=== PATIENT | female | born 2000 | race Caucasian/White ===

== ENCOUNTER 2018-03-29 11:20 | Emergency (ER) | payer SELFPAY ==
[~2018-03-29] VITALS: Ht 152.4 cm; Wt 68.0 kg
[2018-03-29 12:07] LABS: BILIRUBIN,URINE NEGATIVE (NEGATIVE); CLARITY,URINE SLIGHTLY CLOUDY; COLOR,URINE YELLOW; GLUCOSE, URINE (UA) NEGATIVE (NEGATIVE); KETONES,URINE NEGATIVE (NEGATIVE); LEUKOCYTE ESTERASE ,URINE 3+ (NEGATIVE); NITRITE,URINE NEGATIVE (NEGATIVE); PH,URINE 5 (5-9); PROTEIN,URINE NEGATIVE (NEGATIVE); UROBILINOGEN,URINE NORMAL (NORMAL)
[2018-03-29 12:14] LABS: BACTERIA,URINE FEW /HPF
[2018-03-29 12:19] LABS: BASOPHILS % (AUTO) 0 % (0-10); EOSINOPHILS # (AUTO) 0.3 10^3/uL (0.0-0.3); EOSINOPHILS % (AUTO) 4 % (0-10); HEMATOCRIT 40 % (35-52); HEMOGLOBIN 13.8 G/DL (11.5-16.0); LYMPHOCYTES # (AUTO) 2.8 X 10^3 (1.0-4.0); LYMPHOCYTES % (AUTO) 39 % (12-44); MEAN CORPUSCULAR HEMOGLOBIN 29 PG (25-34); MEAN CORPUSCULAR HGB CONC 35 G/DL (32-36); MEAN CORPUSCULAR VOLUME 82 FL (80-99); MONOCYTES # (AUTO) 0.4 X 10^3 (0.0-1.0); MONOCYTES % (AUTO) 5 % (0-12); NEUTROPHILS # (AUTO) 3.7 X 10^3 (1.8-7.8); NEUTROPHILS % (AUTO) 51 % (42-75); PLATELET COUNT 256 10^3/uL (130-400); RED BLOOD COUNT 4.82 10^6/uL (4.35-5.85); RED CELL DISTRIBUTION WIDTH 13.8 % (10.0-14.5); WHITE BLOOD COUNT 7.2 10^3/uL (4.3-11.0)
[2018-03-29 12:38] LABS: ALANINE AMINOTRANSFERASE 15 U/L (0-55); ALBUMIN 4.6 GM/DL (3.2-4.5); ALKALINE PHOSPHATASE 125 U/L (40-136); BILIRUBIN,TOTAL 0.4 MG/DL (0.1-1.0); BUN/CREATININE RATIO 12; CARBON DIOXIDE 22 MMOL/L (21-32); CHLORIDE 106 MMOL/L (98-107); CREATININE SERUM 0.74 MG/DL (0.60-1.30); GFR ESTIMATED > 60; GLUCOSE 91 MG/DL (70-105); POTASSIUM 3.8 MMOL/L (3.6-5.0); SODIUM 139 MMOL/L (135-145); TOTAL PROTEIN 8.3 GM/DL (6.4-8.2)
--- NOTE | 2018-03-29 13:12 | ED Abdominal Pain ---
General Chief Complaint: Abdominal/GI Problems Stated Complaint: THROWING UP Nursing Triage Note: VOMITING SINCE 0300, EPIGASTRIC PAIN Source of Information: Patient Exam Limitations: No Limitations History of Present Illness Date Seen by Provider: Mar 29, 2018 Time Seen by Provider: 13:08 Initial Comments The patient is a 17-year-old white female who presents with a chief complaint of abdominal pain. She reports that this began at about 0300 this morning. She feels nauseated but has not vomited. The pain is in the area above the umbilicus at and extending to the xiphoid. She has not attempted to eat today. She has passed gas but has not had a bowel movement today. She normally has at least one bowel movement per day. There is no radiation to the scapula or shoulder. She has had a previous appendectomy as a small child performed with laparoscopy. Timing/Duration: 12 Hours Severity/Quality: Mild, Moderate Location: Epigastric, Periumbilical Radiation: No Radiation Activities at Onset: None Allergies and Home Medications Allergies Coded Allergies: No Allergy Information Available (Unverified , 03/29/18) Patient Home Medication List Home Medication List Reviewed: Yes Review of Systems Review of Systems Constitutional: see HPI EENTM: No Symptoms Reported Respiratory: No Symptoms Reported Cardiovascular: No Symptoms Reported Gastrointestinal: See HPI Genitourinary: No Symptoms Reported Musculoskeletal: no symptoms reported Skin: no symptoms reported Psychiatric/Neurological: No Symptoms Reported Endocrine: No Symptoms Reported Hematologic/Lymphatic: No Symptoms Reported Past Nnwfobw-Pcgklh-Fqkqav Hx Patient Social History Alcohol Use: Denies Use Recreational Drug Use: No Smoking Status: Current Everyday Smoker Type Used: Cigarettes Recent Foreign Travel: No Contact w/Someone Who Travel: No Recent Infectious Disease Expo: No Recent Hopitalizations: No Physical Abuse: No Sexual Abuse: No Past Medical History Surgeries: Yes Appendectomy Respiratory: No Cardiac: No Neurological: No Genitourinary: No Gastrointestinal: No Musculoskeletal: No Endocrine: No HEENT: No Cancer: No Psychosocial: No Integumentary: No Blood Disorders: No Physical Exam Vital Signs Vital Signs - First Documented Capillary Refill : Height/Weight/BMI Height: 5'0" Weight: 150lbs. oz. 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, no motor/sensory deficits, alert, normal mood/affect, oriented x 3 Progress/Results/Core Measures Results/Orders Lab Results Laboratory Tests Test 03/29/18 11:57 03/29/18 12:01 Range/Units Urine Color YELLOW Urine Clarity SLIGHTLY CLOUDY Urine pH 5 5-9 Urine Specific [place] 1.015 L 1.016-1.022 Urine Protein NEGATIVE NEGATIVE Urine Glucose (UA) NEGATIVE NEGATIVE Urine Ketones NEGATIVE NEGATIVE Urine Nitrite NEGATIVE NEGATIVE Urine Bilirubin NEGATIVE NEGATIVE Urine Urobilinogen NORMAL NORMAL MG/DL Urine Leukocyte Esterase 3+ H NEGATIVE Urine RBC (Auto) NEGATIVE NEGATIVE Urine RBC NONE /HPF Urine WBC 10-25 H /HPF Urine Squamous Epithelial Cells 5-10 /HPF Urine Crystals NONE /LPF Urine Bacteria FEW H /HPF Urine Casts NONE /LPF Urine Mucus NEGATIVE /LPF Urine Culture Indicated YES Urine Test NEGATIVE NEGATIVE White Blood Count 7.2 4.3-11.0 10^3/uL Red Blood Count 4.82 4.35-5.85 10^6/uL Hemoglobin 13.8 11.5-16.0 G/DL Hematocrit 40 35-52 % Mean Corpuscular Volume 82 80-99 FL Mean Corpuscular Hemoglobin 29 25-34 PG Mean Corpuscular Hemoglobin Concent 35 32-36 G/DL Red Cell Distribution Width 13.8 10.0-14.5 % Platelet Count 256 130-400 10^3/uL Mean Platelet Volume 10.0 7.4-10.4 FL Neutrophils (%) (Auto) 51 42-75 % Lymphocytes (%) (Auto) 39 12-44 % Monocytes (%) (Auto) 5 0-12 % Eosinophils (%) (Auto) 4 0-10 % Basophils (%) (Auto) 0 0-10 % Neutrophils # (Auto) 3.7 1.8-7.8 X 10^3 Lymphocytes # (Auto) 2.8 1.0-4.0 X 10^3 Monocytes # (Auto) 0.4 0.0-1.0 X 10^3 Eosinophils # (Auto) 0.3 0.0-0.3 10^3/uL Basophils # (Auto) 0.0 0.0-0.1 10^3/uL Sodium Level 139 135-145 MMOL/L Potassium Level 3.8 3.6-5.0 MMOL/L Chloride Level 106 98-107 MMOL/L Carbon Dioxide Level 22 21-32 MMOL/L Anion Gap 11 5-14 MMOL/L Blood Urea Nitrogen 9 7-18 MG/DL Creatinine 0.74 0.60-1.30 MG/DL Estimat Glomerular Filtration Rate > 60 BUN/Creatinine Ratio 12 Glucose Level 91 70-105 MG/DL Calcium Level 10.0 8.5-10.1 MG/DL Corrected Calcium 8.5-10.1 MG/DL Total Bilirubin 0.4 0.1-1.0 MG/DL Aspartate Amino Transf (AST/SGOT) 18 5-34 U/L Alanine Aminotransferase (ALT/SGPT) 15 0-55 U/L Alkaline Phosphatase 125 40-136 U/L Total Protein 8.3 H 6.4-8.2 GM/DL Albumin 4.6 H 3.2-4.5 GM/DL My Orders Orders - JODI LEMA MD Cbc With Automated Diff (03/29/18 11:57) Comprehensive Metabolic Panel (03/29/18 11:57) Ua Culture If Indicated (03/29/18 11:57) Urine Culture (03/29/18 11:57) Ct Abdomen/Pelvis W (03/29/18 13:07) Hcg,Qualitative Urine (03/29/18 13:13) Iohexol Injection (Omnipaque 350 Mg/Ml 1 (03/29/18 13:30) Vital Signs/I&O 03/29/18 03/29/18 11:40 11:40 Temp 98.6 98.6 Pulse 69 69 Resp 14 14 B/P (MAP) 132/83 132/83 Pulse Ox 98 98 Departure Communication (Admissions) CT scan did not define any process in the epigastric area. There was an incidental finding of an ovarian cyst. Impression Primary Impression: urinary tract infection Disposition: 01 HOME, SELF-CARE Condition: Stable/Unchanged Departure-Patient Inst. Decision time for Depature: 14:03 Referrals: NO,LOCAL PHYSICIAN (PCP) Primary Care Physician Patient Instructions: Acute Abdomen (Belly Pain), Child (DC) Add. Discharge Instructions: All discharge instructions reviewed with patient and/or family. Voiced understanding. Take the medication as prescribed for urinary tract infection. If continuing difficulty see your provider JODI LEMA MD Mar 29, 2018 13:12
[2018-03-29] MEDS ORDERED: IOHEXOL 350 MG/ML 100 ML (OMNIPAQUE 350) VIAL IV ONE (13:30)
[2018-03-29] MEDS ORDERED: CEFD300C3 PO (14:10)
--- NOTE | 2018-03-29 14:12 | Diagnostic Imaging Report ---
PROCEDURE: CT abdomen and pelvis with contrast. TECHNIQUE: Multiple contiguous axial images were obtained through the abdomen and pelvis after administration of intravenous contrast. INDICATION: Abdominal pain. COMPARISON: None. FINDINGS: Lung bases are clear. The liver, gallbladder, pancreas, spleen, adrenals, kidneys, collecting systems and partially opacified bladder are negative. Appendectomy. The reproductive structures are unremarkable. No free intraperitoneal air or fluid. No lymphadenopathy. No evidence of bowel obstruction or inflammation. Osseous structures are negative. IMPRESSION: No acute CT findings in the abdomen or pelvis. Dictated by: Dictated on workstation # [id number]
== END 2018-03-29 14:34 | disposition home or self-care (01) ==
LOC: ER 11:21
DX: N39.0 Urinary tract infection, site not specified (principal); R10.33 Periumbilical pain; F17.210 Nicotine dependence, cigarettes, uncomplicated; Z90.89 Acquired absence of other organs; Z90.49 Acquired absence of other specified parts of digestive tract
CPT/HCPCS: 36415; 74177; 80053; 81000; 84703; 85025; 87088

== ENCOUNTER 2018-12-25 12:06 | Emergency (ER) | payer SELFPAY ==
[~2018-12-25] VITALS: Ht 152.4 cm; Wt 81.6 kg
[~2018-12-25 12:06] MED LIST: CEFD300C3 PO
--- NOTE | 2018-12-25 12:39 | NUR ---
Pt to room at this time. Attempted to start IV and draw labs. Pt reports, "I don't do that shit. I don't do needles. I just need a work note." This nurse questioned pt about vomiting at this time. Pt reports feeling better and only needs a work note.
--- NOTE | 2018-12-25 12:48 | ED GI ---
General Chief Complaint: Abdominal/GI Problems Stated Complaint: N/V Nursing Triage Note: Pt amb to triage w/o difficulty. a&ox4. c/o nausea, vomiting, and abd discomfort that began @ approx 1800 12/24/18. Reports to have had x2 episodes of emesis throughout this morning. Describes abd discomfort as generalized ache. Pt states, "My boss won't let me come to work around food until I havent thrown up for <24hrs." Sepsis Screen: No Definite Risk Source of Information: Patient Exam Limitations: No Limitations History of Present Illness Date Seen by Provider: Dec 25, 2018 Time Seen by Provider: 12:45 Initial Comments To ER with reports of needing a work note. She had nausea vomiting and upper abdominal discomfort last night but that has resolved. She states she works for [employer] and has been told that she can go to work for 24 hours after nausea and vomiting. States she doesn't want any blood work done or evaluation, only a work note. Timing/Duration: 1-2 Days Severity/Quality: Moderate Radiation: No Radiation Activities at Onset: None Associated Symptoms: Nausea/Vomiting Allergies and Home Medications Allergies Coded Allergies: No Known Drug Allergies (Unverified , 03/29/18) Home Medications Cefdinir 300 Mg Capsule, 300 MG PO twice a day Prescribed by: JODI LEMA on 03/29/18 1410 Patient Home Medication List Home Medication List Reviewed: Yes Review of Systems Review of Systems Constitutional: see HPI EENTM: No Symptoms Reported Respiratory: No Symptoms Reported Cardiovascular: No Symptoms Reported Gastrointestinal: See HPI, Abdominal Pain, Diarrhea, Nausea Genitourinary: No Symptoms Reported Musculoskeletal: no symptoms reported Skin: no symptoms reported Psychiatric/Neurological: No Symptoms Reported Endocrine: No Symptoms Reported Hematologic/Lymphatic: No Symptoms Reported Past Rfrrgzi-Gpzwgh-Gwoeew Hx Patient Social History Alcohol Use: Denies Use Recreational Drug Use: No Smoking Status: Current Everyday Smoker Type Used: Cigarettes 2nd Hand Smoke Exposure: Yes Recent Foreign Travel: No Contact w/Someone Who Travel: No Recent Infectious Disease Expo: No Recent Hopitalizations: No Past Medical History Surgeries: Yes Appendectomy Respiratory: No Cardiac: No Neurological: No Genitourinary: No Gastrointestinal: No Musculoskeletal: No Endocrine: No HEENT: No Cancer: No Psychosocial: No Integumentary: No Blood Disorders: No Physical Exam Vital Signs Vital Signs - First Documented 12/25/18 12:22 Temp 98.5 Pulse 68 Resp 16 B/P (MAP) 109/60 (76) Pulse Ox 99 O2 Delivery Room Air Capillary Refill : Less Than 3 Seconds Height/Weight/BMI Height: 5'0" Weight: 180lbs. oz. 81.067530xg; 29.29 BMI Method:Stated General Appearance: WD/WN, no apparent distress HEENT: PERRL/EOMI, normal ENT inspection Respiratory: no respiratory distress, no accessory muscle use Gastrointestinal: normal bowel sounds, non tender, soft Extremities: normal range of motion, non-tender Neurologic/Psychiatric: alert, normal mood/affect, oriented x 3 Skin: normal color, warm/dry Progress/Results/Core Measures Results/Orders Vital Signs/I&O 12/25/18 12:22 Temp 98.5 Pulse 68 Resp 16 B/P (MAP) 109/60 (76) Pulse Ox 99 O2 Delivery Room Air Blood Pressure Mean: 76 Departure Communication (Admissions) RN advised patient initially before I was in the room that we should start an IV and check labs, patient replied "no, I don't do that shit I just need a work note" Impression Primary Impression: request for work note Additional Impression: Reported nausea and vomiting Disposition: HOME, SELF-CARE Condition: Stable Departure-Patient Inst. Decision time for Depature: 12:47 Referrals: NO,LOCAL PHYSICIAN (PCP/Family) Primary Care Physician Patient Instructions: No Instuctions Given Add. Discharge Instructions: For future reference the emergency room should not be used to obtain work notes, emergency room should be used for emergencies. Follow-up with your primary care provider. For future nonemergency situations such as this one go to an urgent care. All discharge instructions reviewed with patient and/or family. Voiced understanding. JEANIE CASTELLANO APRN Dec 25, 2018 12:48
[2018-12-25 12:51] VITALS: BP 109/60
== END 2018-12-25 12:51 | disposition home or self-care (01) ==
LOC: EDUNIT# 12:06 → ER 12:07
DX: R11.2 Nausea with vomiting, unspecified (principal); F17.210 Nicotine dependence, cigarettes, uncomplicated; Z90.49 Acquired absence of other specified parts of digestive tract
CPT/HCPCS: 99282

== ENCOUNTER 2019-02-08 19:10 | Emergency (ER) | payer SELFPAY ==
[~2019-02-08] VITALS: Ht 152.4 cm; Wt 81.6 kg
[2019-02-08] MEDS ORDERED: D-ME118S33 PO (19:56)
--- NOTE | 2019-02-08 19:56 | ED EENT ---
History of Present Illness General Chief Complaint: Oral/Throat Problems Stated Complaint: COUGH,FEVER Nursing Triage Note: HAS HAD A COUGH, SORE THROAT, AND NASAL DRAINAGE FOR THREE DAYS AND IT HAS ONLY GOTTEN WORSE. Source: patient Exam Limitations: no limitations History of Present Illness Date Seen by Provider: Feb 08, 2019 Time Seen by Provider: 19:54 Initial Comments To ER with sore throat runny nose and nasal drainage productive cough and fever up to 103 for 3 days. She is take ibuprofen, states she doesn't have any money for NyQuil or DayQuil Timing/Duration: abrupt Severity: moderate Associated Symptoms: denies symptoms Allergies and Home Medications Allergies Coded Allergies: No Known Drug Allergies (Unverified , 03/29/18) Home Medications Cefdinir 300 Mg Capsule, 300 MG PO twice a day Prescribed by: JODI LEMA on 03/29/18 1410 D-Methorphan Hb/P-Epd HCl/Bpm 118 Ml Syrup, 5 ML PO Q6H PRN for CONGESTION Prescribed by: JEANIE CASTELLANO on 02/08/191955 Patient Home Medication List Home Medication List Reviewed: Yes Review of Systems Review of Systems Constitutional: see HPI Eyes: No Symptoms Reported Ears: No Symptoms Reported Nose: see HPI, congestion Mouth: no symptoms reported Throat: no symptoms reported Respiratory: see HPI, cough Cardiovascular: no symptoms reported Musculoskeletal: no symptoms reported Past Ymwzwcf-Alkrho-Crkjxb Hx Patient Social History Alcohol Use: Denies Use Recreational Drug Use: No Smoking Status: Current Everyday Smoker Type Used: Cigarettes 2nd Hand Smoke Exposure: Yes Recent Foreign Travel: No Contact w/Someone Who Travel: No Recent Infectious Disease Expo: No Recent Hopitalizations: No Past Medical History Surgeries: Yes Appendectomy Respiratory: No Cardiac: No Neurological: No Genitourinary: No Gastrointestinal: No Musculoskeletal: No Endocrine: No HEENT: No Cancer: No Psychosocial: No Integumentary: No Blood Disorders: No Physical Exam Vital Signs Vital Signs - First Documented 02/08/19 19:15 Temp 99.4 Pulse 68 Resp 20 B/P (MAP) 121/96 (104) Pulse Ox 97 O2 Delivery Room Air Height, Weight, BMI Height: 5'0" Weight: 180lbs. oz. 81.926223yo; 29.29 BMI Method:Stated General Appearance: WD/WN, no apparent distress Eyes: bilateral eye normal inspection, bilateral eye PERRL, bilateral eye EOMI Ears: bilateral ear auricle normal, bilateral ear canal normal, bilateral ear TM normal Nose: normal inspection, active bleeding Mouth/Throat: normal mouth inspection, pharynx normal Neck: non-tender, full range of motion Respiratory: normal breath sounds, no respiratory distress, no accessory muscle use Gastrointestinal: normal bowel sounds, non tender Neurologic/Psychiatric: alert, normal mood/affect, oriented x 3 Skin: normal color, warm/dry Progress/Results/Core Measures Results/Orders My Orders Orders - JEANIE CASTELLANO APRN Chest Pa/Lat (2 View) (02/08/19 19:53) Dexamethasone Injection (Decadron Inject (02/08/19 20:00) Pseudoephedrine Tablet (Sudafed Tablet) (02/08/19 20:00) Vital Signs/I&O 02/08/19 19:15 Temp 99.4 Pulse 68 Resp 20 B/P (MAP) 121/96 (104) Pulse Ox 97 O2 Delivery Room Air Blood Pressure Mean: 104 Departure Communication (Admissions) 2027-pt refused decadron injection Impression Primary Impression: Viral syndrome Disposition: 01 HOME, SELF-CARE Condition: Stable Departure-Patient Inst. Decision time for Depature: 19:55 Referrals: NO,LOCAL PHYSICIAN (PCP/Family) Primary Care Physician Patient Instructions: Viral Syndrome (DC) Add. Discharge Instructions: 1. Medication as directed 2. Return to ER for any concerns 3. All discharge instructions reviewed with patient and/or family. Voiced understanding. Scripts D-Methorphan Hb/P-Epd HCl/Bpm (Bromfed Dm Cough Syrup) 118 Ml Syrup 5 ML PO Q6H PRN for CONGESTION for 7 Days, #120 ML Prov: JEANIE CASTELLANO APRN 02/08/19 JEANIE CASTELLANO APRN Feb 08, 2019 19:56
[2019-02-08] MEDS ORDERED: DEXAMETHASONE 10 MG/ML (DECADRON) 1 ML VIAL IM ONE (20:00)
[2019-02-08] MEDS ORDERED: PSEUDOEPHEDRINE HCL 30 MG (SUDAFED) TAB PO ONE (20:00)
[2019-02-08 20:30] VITALS: BP 124/79
--- NOTE | 2019-02-08 23:18 | Diagnostic Imaging Report ---
Examination: Chest, PA and lateral views Indication: Cough, congestion, and shortness of breath. Comparison: None available. Findings: The lungs are clear and the pulmonary vasculature is normal. No pneumothorax or pleural effusion. The cardiomediastinal silhouette is normal. No acute osseous abnormality. Impression: No radiographic evidence of acute chest disease. Dictated by: Dictated on workstation # [id number]
== END 2019-02-08 20:30 | disposition home or self-care (01) ==
LOC: EDUNIT# 19:10 → ER 19:11
DX: B34.9 Viral infection, unspecified (principal); F17.210 Nicotine dependence, cigarettes, uncomplicated; Z90.49 Acquired absence of other specified parts of digestive tract
CPT/HCPCS: 71046

== ENCOUNTER 2019-03-03 14:15 | Emergency (ER) | payer SELFPAY ==
[~2019-03-03] VITALS: Ht 152.4 cm; Wt 81.6 kg
[~2019-03-03 14:15] MED LIST changes: +D-ME118S33 PO
[2019-03-03] MEDS ORDERED: LACTATED RINGERS 1,000 ML IV ONE (14:30)
[2019-03-03] MEDS ORDERED: ASPIRIN 81 MG CHEW (CHILDREN'S ASA) PO ONE (14:30)
--- NOTE | 2019-03-03 14:40 | ED Chest Pain ---
General Chief Complaint: Chest Pain Stated Complaint: CHEST PAIN Nursing Triage Note: PT AMBULATE TO ROOM 06 WITH C/O CHEST PAIN TWO DAYS AGO. NO C/O SOA. Nursing Sepsis Screen: No Definite Risk Source: patient Exam Limitations: no limitations History of Present Illness Date Seen by Provider: Mar 03, 2019 Time Seen by Provider: 14:26 Initial Comments The patient presents to ER by private conveyance with chief complaint last 2 days she has experienced one or 2 episodes a day of a sharp, stabbing pain in her left chest above her left breast not radiating anywhere. He says the pain lasts for anywhere from 10 seconds to 5 minutes. She called urgent care this morning but they told her that she needed to the ER she was having chest pain. Patient's having no shortness of breath fever chills sweats nausea or diarrhea. She's not having any abdominal pain. No history of surgeries. She takes Lexapro from [employer]. She does not have a history of high blood pressure cholesterol thyroid disease. She does smoke about a pack cigarettes per day and uses marijuana occasionally and about 6 months ago use methamphetamines by snorting. Not currently having any pain. Paternal history of heart attack at age 38. Allergies and Home Medications Allergies Coded Allergies: amoxicillin (Verified Allergy, Unknown, 03/03/19) RASH Home Medications Cefdinir 300 Mg Capsule, 300 MG PO twice a day Prescribed by: JODI LEMA on 03/29/18 1410 D-Methorphan Hb/P-Epd HCl/Bpm 118 Ml Syrup, 5 ML PO Q6H PRN for CONGESTION Prescribed by: JEANIE CASTELLANO on 02/08/19 1956 Patient Home Medication List Home Medication List Reviewed: Yes Review of Systems Review of Systems Constitutional: No chills, No diaphoresis EENTM: No Blurred Vision, No Double Vision Respiratory: Denies Cough, Denies Shortness of Air Cardiovascular: See HPI, Chest Pain; Denies Edema, Denies Irregular Heart Rate Gastrointestinal: Denies Constipated, Denies Diarrhea, Denies Nausea Genitourinary: Denies Burning, Denies Discharge, Denies Drainage Musculoskeletal: No back pain, No joint pain Past Kljjgwe-Bgiewb-Wgwczd Hx Patient Social History Alcohol Use: Denies Use Recreational Drug Use: Yes (POT (BUT NOT IN THE LAST TWO WEEKS). STOPPED METH APPROX 6 MONTHS AGO) Drug of Choice: POT, Meth Smoking Status: Current Everyday Smoker Type Used: Cigarettes 2nd Hand Smoke Exposure: Yes Recent Foreign Travel: No Contact w/Someone Who Travel: No Recent Infectious Disease Expo: No Recent Hopitalizations: No Seasonal Allergies Seasonal Allergies: No Past Medical History Surgeries: Yes Appendectomy Respiratory: No Cardiac: No Neurological: No Sexually Transmitted Disease: No Genitourinary: No Gastrointestinal: Yes Ulcer Musculoskeletal: No Endocrine: No HEENT: No Loss of Vision: Denies Hearing Impairment: Denies Cancer: No Psychosocial: No ADD/ADHD, Anxiety, PTSD Integumentary: No Blood Disorders: No Physical Exam Vital Signs Vital Signs - First Documented 03/03/19 03/03/19 14:20 14:56 Temp 97.5 Pulse 106 Resp 16 B/P (MAP) 134/100 (111) Pulse Ox 99 O2 Delivery Room Air FiO2 97 Capillary Refill : Less Than 3 Seconds Height, Weight, BMI Height: 5'0" Weight: 180lbs. oz. 81.979110sm; 29.29 BMI Method:Stated General Appearance: No Apparent Distress, WD/WN HEENT: PERRL/EOMI, Pharynx Normal, Moist Mucous Membranes Neck: Full Range of Motion, Normal Inspection Respiratory: Lungs Clear, Normal Breath Sounds, No Accessory Muscle Use Cardiovascular: Regular Rate, Rhythm, No Edema, Normal Peripheral Pulses, Tachycardia (105) Gastrointestinal: Normal Bowel Sounds, Non Tender, Soft Extremity: Normal Capillary Refill, Normal Inspection, No Pedal Edema Skin: Normal Color, Warm/Dry Progress/Results/Core Measures Results/Orders Lab Results Laboratory Tests Test 03/03/19 14:48 03/03/19 15:10 Range/Units White Blood Count 7.4 4.3-11.0 10^3/uL Red Blood Count 4.52 4.35-5.85 10^6/uL Hemoglobin 12.0 11.5-16.0 G/DL Hematocrit 36 35-52 % Mean Corpuscular Volume 80 80-99 FL Mean Corpuscular Hemoglobin 27 25-34 PG Mean Corpuscular Hemoglobin Concent 33 32-36 G/DL Red Cell Distribution Width 14.7 H 10.0-14.5 % Platelet Count 328 130-400 10^3/uL Mean Platelet Volume 9.7 7.4-10.4 FL Neutrophils (%) (Auto) 52 42-75 % Lymphocytes (%) (Auto) 34 12-44 % Monocytes (%) (Auto) 7 0-12 % Eosinophils (%) (Auto) 7 0-10 % Basophils (%) (Auto) 0 0-10 % Neutrophils # (Auto) 3.8 1.8-7.8 X 10^3 Lymphocytes # (Auto) 2.6 1.0-4.0 X 10^3 Monocytes # (Auto) 0.5 0.0-1.0 X 10^3 Eosinophils # (Auto) 0.5 H 0.0-0.3 10^3/uL Basophils # (Auto) 0.0 0.0-0.1 10^3/uL Prothrombin Time 13.2 12.2-14.7 SEC INR Comment 1.0 0.8-1.4 Activated Partial Thromboplast Time 28 24-35 SEC Sodium Level 143 135-145 MMOL/L Potassium Level 3.9 3.6-5.0 MMOL/L Chloride Level 109 H 98-107 MMOL/L Carbon Dioxide Level 23 21-32 MMOL/L Anion Gap 11 5-14 MMOL/L Blood Urea Nitrogen 10 7-18 MG/DL Creatinine 0.77 0.60-1.30 MG/DL Estimat Glomerular Filtration Rate > 60 BUN/Creatinine Ratio 13 Glucose Level 103 70-105 MG/DL Calcium Level 9.7 8.5-10.1 MG/DL Corrected Calcium 9.5 8.5-10.1 MG/DL Magnesium Level 2.1 1.6-2.4 MG/DL Total Bilirubin 0.3 0.1-1.0 MG/DL Aspartate Amino Transf (AST/SGOT) 17 5-34 U/L Alanine Aminotransferase (ALT/SGPT) 21 0-55 U/L Alkaline Phosphatase 129 40-136 U/L Myoglobin 25.9 10.0-92.0 NG/ML Troponin I < 0.028 <0.028 NG/ML Total Protein 8.0 6.4-8.2 GM/DL Albumin 4.2 3.2-4.5 GM/DL Urine Color YELLOW Urine Clarity VERY CLOUDY H Urine pH 5 5-9 Urine Specific [place] 1.025 H 1.016-1.022 Urine Protein 2+ H NEGATIVE Urine Glucose (UA) NEGATIVE NEGATIVE Urine Ketones 1+ H NEGATIVE Urine Nitrite NEGATIVE NEGATIVE Urine Bilirubin NEGATIVE NEGATIVE Urine Urobilinogen 1 NORMAL MG/DL Urine Leukocyte Esterase 2+ H NEGATIVE Urine RBC (Auto) 5+ H NEGATIVE Urine RBC TNTC H /HPF Urine WBC 10-25 H /HPF Urine Crystals NONE /LPF Urine Amorphous Sediment LARGE DUC URATES H /LPF Urine Bacteria LARGE H /HPF Urine Casts NONE /LPF Urine Mucus MODERATE H /LPF Urine Culture Indicated YES Urine Opiates Screen NEGATIVE NEGATIVE Urine Oxycodone Screen NEGATIVE NEGATIVE Urine Methadone Screen NEGATIVE NEGATIVE Urine Propoxyphene Screen NEGATIVE NEGATIVE Urine Barbiturates Screen NEGATIVE NEGATIVE Ur Tricyclic Antidepressants Screen NEGATIVE NEGATIVE Urine Phencyclidine Screen NEGATIVE NEGATIVE Urine Amphetamines Screen NEGATIVE NEGATIVE Urine Methamphetamines Screen NEGATIVE NEGATIVE Urine Benzodiazepines Screen NEGATIVE NEGATIVE Urine Cocaine Screen NEGATIVE NEGATIVE Urine Cannabinoids Screen NEGATIVE NEGATIVE My Orders Orders - LAURA CURRY Cbc With Automated Diff (03/03/19 14:30) Magnesium (03/03/19 14:30) Ekg Tracing (03/03/19 14:30) Cardiac Profile 1 (03/03/19 14:30) Comprehensive Metabolic Panel (03/03/19 14:30) Myoglobin Serum (03/03/19 14:30) Protime With Inr (03/03/19 14:30) Partial Thromboplastin Time (03/03/19 14:30) O2 (03/03/19 14:30) Monitor-Rhythm Ecg Trace Only (03/03/19 14:30) Lipid Panel (03/04/19 06:00) Ed Iv/Invasive Line Start (03/03/19 14:30) Aspirin Chewable Tablet (Baby Aspirin Ch (03/03/19 14:30) Ed Iv/Invasive Line Start (03/03/19 14:30) Lactated Ringers (Lr 1000 Ml Iv Solution (03/03/19 14:30) Chest Pa/Lat (2 View) (03/03/19 14:30) Ua Culture If Indicated (03/03/19 14:42) Drug Screen Stat (Urine) (03/03/19 14:42) Urine Bedside (03/03/19 14:42) Urine Culture (03/03/19 15:10) Medications Given in ED Current Medications Medications Dose Ordered Sig/Brayan Route Start Time Stop Time Status Last Admin Dose Admin Aspirin 324 mg ONCE ONCE PO 03/03/19 14:30 03/03/19 14:34 DC 03/03/19 14:40 324 MG Lactated Ringer's 1,000 ml @ 0 mls/hr Q0M ONCE IV 03/03/19 14:30 03/03/19 14:34 DC 03/03/19 14:40 999 MLS/HR Vital Signs/I&O 03/03/19 03/03/19 03/03/19 14:20 14:33 14:56 Temp 97.5 Pulse 106 Resp 16 B/P (MAP) 134/100 (111) Pulse Ox 99 97 O2 Delivery Room Air Room Air FiO2 97 Blood Pressure Mean: 111 Progress Progress Note : Time: 14:41 Progress Note Aspirin, hematologic workup, chest x-ray and urine pregnancies urine drug screen. She is currently on her period. Pericarditis or infective endocarditis and the possible although the patient does not appear acutely sick except for the tachycardia. Afebrile. The CRP and troponin will be helpful as well as a drug screen. Initial ECG Impression Date: Mar 03, 2019 Initial ECG Impression Time: 14:18 Initial ECG Rate: 104 Initial ECG Rhythm: S.Tach Initial ECG Intervals: Normal Initial ECG Impression: Normal, Nonspecific Changes Comment Sinus tachycardia without clinically evident ST elevation or depression. Diagnostic Imaging Diagonstic Imaging: Xray Plain Films/CT/US/NM/MRI: chest (2v) Comments NAME: CHRIS CAMARGO [facility] REC#: [id number] PT STATUS: REG ER : 2000 PHYSICIAN: LAURA CURRY MD ADMIT DATE: 03/03/19/ER Draft Date of Exam:03/03/19 CHEST PA/LAT (2 VIEW) INDICATION: Chest pain. TIME OF EXAM: 3:05 p.m. COMPARISON: Correlation is made with prior study from 02/08/2019. FINDINGS: The heart size is normal. The pulmonary vascularity is unremarkable. The lungs are clear. No infiltrate, effusion or pneumothorax is detected. IMPRESSION: No acute cardiopulmonary process is detected. Dictated on workstation # [id number] Dict: 03/03/19 1509 Trans: 03/03/19 1511 [id number] Interpreted by: ALBARO DE JESUS MD Electronically signed by: Reviewed: Reviewed by Me Departure Impression Primary Impression: Chest wall pain Disposition: 01 HOME, SELF-CARE Condition: Stable Departure-Patient Inst. Decision time for Depature: 15:46 Referrals: NO,LOCAL PHYSICIAN (PCP/Family) Primary Care Physician Patient Instructions: Chest Pain That Is Not Caused by the Heart (DC) Add. Discharge Instructions: Tylenol and/or ibuprofen will be reasonable if you continue to have chest aches. Follow-up with your primary care provider tomorrow to discuss your other vehicle issues. All discharge instructions reviewed with patient and/or family. Voiced understanding. LAURA CURRY Mar 03, 2019 14:40
[2019-03-03 14:58] LABS: BASOPHILS % (AUTO) 0 % (0-10); EOSINOPHILS # (AUTO) 0.5 10^3/uL (0.0-0.3); EOSINOPHILS % (AUTO) 7 % (0-10); HEMATOCRIT 36 % (35-52); LYMPHOCYTES # (AUTO) 2.6 X 10^3 (1.0-4.0); LYMPHOCYTES % (AUTO) 34 % (12-44); MEAN CORPUSCULAR HEMOGLOBIN 27 PG (25-34); MEAN CORPUSCULAR HGB CONC 33 G/DL (32-36); MEAN CORPUSCULAR VOLUME 80 FL (80-99); MEAN PLATELET VOLUME 9.7 FL (7.4-10.4); MONOCYTES # (AUTO) 0.5 X 10^3 (0.0-1.0); MONOCYTES % (AUTO) 7 % (0-12); NEUTROPHILS # (AUTO) 3.8 X 10^3 (1.8-7.8); NEUTROPHILS % (AUTO) 52 % (42-75); PLATELET COUNT 328 10^3/uL (130-400); RED CELL DISTRIBUTION WIDTH 14.7 % (10.0-14.5); WHITE BLOOD COUNT 7.4 10^3/uL (4.3-11.0)
[2019-03-03 15:09] LABS: PROTHROMBIN TIME PATIENT 13.2 SEC (12.2-14.7)
--- NOTE | 2019-03-03 15:12 | Diagnostic Imaging Report ---
INDICATION: Chest pain. TIME OF EXAM: 3:05 p.m. COMPARISON: Correlation is made with prior study from 02/08/2019. FINDINGS: The heart size is normal. The pulmonary vascularity is unremarkable. The lungs are clear. No infiltrate, effusion or pneumothorax is detected. IMPRESSION: No acute cardiopulmonary process is detected. Dictated by: Dictated on workstation # [id number]
[2019-03-03 15:16] LABS: BILIRUBIN,URINE NEGATIVE (NEGATIVE); CLARITY,URINE VERY CLOUDY; COLOR,URINE YELLOW; GLUCOSE, URINE (UA) NEGATIVE (NEGATIVE); KETONES,URINE 1+ (NEGATIVE); LEUKOCYTE ESTERASE ,URINE 2+ (NEGATIVE); NITRITE,URINE NEGATIVE (NEGATIVE); PH,URINE 5 (5-9); PROTEIN,URINE 2+ (NEGATIVE); UROBILINOGEN,URINE 1 MG/DL (NORMAL)
[2019-03-03 15:18] LABS: ALANINE AMINOTRANSFERASE 21 U/L (0-55); ALBUMIN 4.2 GM/DL (3.2-4.5); ALKALINE PHOSPHATASE 129 U/L (40-136); BILIRUBIN,TOTAL 0.3 MG/DL (0.1-1.0); BUN/CREATININE RATIO 13; CALCIUM 9.7 MG/DL (8.5-10.1); CARBON DIOXIDE 23 MMOL/L (21-32); CHLORIDE 109 MMOL/L (98-107); CREATININE SERUM 0.77 MG/DL (0.60-1.30); GFR ESTIMATED > 60; GLUCOSE 103 MG/DL (70-105); MAGNESIUM 2.1 MG/DL (1.6-2.4); POTASSIUM 3.9 MMOL/L (3.6-5.0); SODIUM 143 MMOL/L (135-145)
[2019-03-03 15:31] LABS: AMPHETAMINE SCREEN, URINE NEGATIVE (NEGATIVE); BARBITURATE SCREEN URINE NEGATIVE (NEGATIVE); BENZODIAZEPINES SCREEN URINE NEGATIVE (NEGATIVE); CANNABINOID SCREEN, URINE NEGATIVE (NEGATIVE); COCAINE SCREEN URINE NEGATIVE (NEGATIVE); METHADONE STAT NEGATIVE (NEGATIVE); METHAMPHETAMINE SCREEN URINE S NEGATIVE (NEGATIVE); OPIATE SCREEN URINE NEGATIVE (NEGATIVE); OXYCODONE STAT NEGATIVE (NEGATIVE); PROPOXYPHENE STAT NEGATIVE (NEGATIVE); TRICYCLIC ANTIDEPRESSANTS SCRE NEGATIVE (NEGATIVE)
[2019-03-03 15:33] LABS: BACTERIA,URINE LARGE /HPF; RBC,URINE TNTC /HPF
[2019-03-03 15:34] LABS: AMORPHOUS SEDIMENT,UR LARGE AMOR URATES /LPF
[2019-03-03 16:01] VITALS: BP 126/83
== END 2019-03-03 16:00 | disposition home or self-care (01) ==
LOC: EDUNIT# 14:15 → ER 14:16
DX: R07.89 Other chest pain (principal); F41.9 Anxiety disorder, unspecified; F43.10 Post-traumatic stress disorder, unspecified; F90.9 Attention-deficit hyperactivity disorder, unspecified type; F17.210 Nicotine dependence, cigarettes, uncomplicated; Z88.1 Allergy status to other antibiotic agents; Z90.49 Acquired absence of other specified parts of digestive tract
CPT/HCPCS: 36415; 71046; 80053; 80306; 81000; 83735; 83874; 84484; 84703; 85025; 85610; 85730; 87088; 93005; 93041

== ENCOUNTER 2019-06-05 19:00 | Emergency (ER) | payer SELFPAY ==
[~2019-06-05] VITALS: Ht 150.4 cm; Wt 105.3 kg
[2019-06-05 19:44] LABS: BASOPHILS % (AUTO) 0 % (0-10); EOSINOPHILS # (AUTO) 0.5 10^3/uL (0.0-0.3); EOSINOPHILS % (AUTO) 7 % (0-10); HEMATOCRIT 37 % (35-52); HEMOGLOBIN 12.1 G/DL (11.5-16.0); LYMPHOCYTES % (AUTO) 37 % (12-44); MEAN CORPUSCULAR HEMOGLOBIN 26 PG (25-34); MEAN CORPUSCULAR HGB CONC 33 G/DL (32-36); MEAN CORPUSCULAR VOLUME 80 FL (80-99); MEAN PLATELET VOLUME 9.7 FL (7.4-10.4); MONOCYTES # (AUTO) 0.5 X 10^3 (0.0-1.0); MONOCYTES % (AUTO) 7 % (0-12); NEUTROPHILS # (AUTO) 3.9 X 10^3 (1.8-7.8); NEUTROPHILS % (AUTO) 49 % (42-75); PLATELET COUNT 291 10^3/uL (130-400); RED CELL DISTRIBUTION WIDTH 15.6 % (10.0-14.5)
[2019-06-05 20:11] LABS: ALANINE AMINOTRANSFERASE 16 U/L (0-55); ALBUMIN 4.2 GM/DL (3.2-4.5); ALKALINE PHOSPHATASE 118 U/L (40-136); BILIRUBIN,TOTAL 0.2 MG/DL (0.1-1.0); BUN/CREATININE RATIO 18; CALCIUM 9.2 MG/DL (8.5-10.1); CARBON DIOXIDE 21 MMOL/L (21-32); CHLORIDE 108 MMOL/L (98-107); GFR ESTIMATED > 60; GLUCOSE 112 MG/DL (70-105); POTASSIUM 3.8 MMOL/L (3.6-5.0); SODIUM 141 MMOL/L (135-145); TOTAL PROTEIN 7.6 GM/DL (6.4-8.2)
[2019-06-05 20:26] LABS: BILIRUBIN,URINE NEGATIVE (NEGATIVE); CLARITY,URINE CLOUDY; COLOR,URINE RED; GLUCOSE, URINE (UA) NEGATIVE (NEGATIVE); KETONES,URINE NEGATIVE (NEGATIVE); LEUKOCYTE ESTERASE ,URINE NEGATIVE (NEGATIVE); NITRITE,URINE NEGATIVE (NEGATIVE); PROTEIN,URINE 1+ (NEGATIVE)
[2019-06-05] MEDS ORDERED: KETOROLAC 30 MG/ML VIAL IVP ONE (20:30)
[2019-06-05 20:40] LABS: BACTERIA,URINE NEGATIVE /HPF; RBC,URINE TNTC /HPF
--- NOTE | 2019-06-05 20:44 | NUR ---
This RN observed pt vomiting in room, provided a basin and notified doctor. Pt reports this is the first time she's been nauseous today.
[2019-06-05] MEDS ORDERED: ONDANSETRON 4 MG/2 ML (SDV) Z0FRAN IVP ONE (20:45)
[2019-06-05] MEDS ORDERED: ONDA4TAB11 PO (21:17)
--- NOTE | 2019-06-05 21:17 | ED Abdominal Pain ---
General Chief Complaint: Abdominal/GI Problems Stated Complaint: ABD PAIN Nursing Triage Note: C/O LOWER MEDIAL ABD PAIN THAT WRAPS AROUND MOSTLY ON RIGHT SIDE. STARTED SUDDENLY AT 1745 Sepsis Screen: No Definite Risk Source of Information: Patient Exam Limitations: No Limitations History of Present Illness Date Seen by Provider: Jun 05, 2019 Time Seen by Provider: 19:03 Initial Comments This 18-year-old young lady presents to the emergency room with rather sudden onset of right pelvic pain that started with a popping sensation around 17:30. She reports pain was fairly severe at onset. She has no prior history of episodes similar to this she denies any constipation, diarrhea, vomiting, fever, dysuria, hematuria, changes in urine, or vaginal symptoms. She is sexually active with women only and denies . She is afebrile. She does not have an appendix. She is currently on her menstrual cycle. Allergies and Home Medications Allergies Coded Allergies: amoxicillin (Verified Allergy, Unknown, 03/03/19) RASH Home Medications Cefdinir 300 Mg Capsule, 300 MG PO twice a day Prescribed by: JODI LEMA on 03/29/18 1410 D-Methorphan Hb/P-Epd HCl/Bpm 118 Ml Syrup, 5 ML PO Q6H PRN for CONGESTION Prescribed by: JEANIE CASTELLANO on 02/08/19 1956 Ondansetron 4 Mg Tab.rapdis, 4 MG PO Q4H PRN for NAUSEA/VOMITING Prescribed by: SELAM CORONADO on 06/05/19 2117 Patient Home Medication List Home Medication List Reviewed: Yes Review of Systems Review of Systems Constitutional: no symptoms reported EENTM: No Symptoms Reported Respiratory: No Symptoms Reported Cardiovascular: No Symptoms Reported Gastrointestinal: See HPI Genitourinary: No Symptoms Reported Musculoskeletal: no symptoms reported Skin: no symptoms reported Psychiatric/Neurological: No Symptoms Reported Endocrine: No Symptoms Reported Past Nvqgiek-Uvnwwv-Uqcavd Hx Past Med/Social Hx: Reviewed Nursing Past Med/Soc Hx Patient Social History Alcohol Use: Rarely Uses Recreational Drug Use: Yes Drug of Choice: POT, Meth Smoking Status: Current Everyday Smoker Type Used: Cigarettes 2nd Hand Smoke Exposure: Yes Recent Foreign Travel: No Contact w/Someone Who Travel: No Recent Infectious Disease Expo: No Recent Hopitalizations: No Physical Abuse: No Sexual Abuse: No Mistreated: No Fear: No Seasonal Allergies Seasonal Allergies: No Past Medical History Surgeries: Yes Appendectomy Respiratory: No Cardiac: No Neurological: No : No Sexually Transmitted Disease: No Genitourinary: No Gastrointestinal: Yes Ulcer Musculoskeletal: No Endocrine: No HEENT: No Loss of Vision: Denies Hearing Impairment: Denies Cancer: No Psychosocial: No ADD/ADHD, Anxiety, PTSD Integumentary: No Blood Disorders: No Physical Exam Vital Signs Vital Signs - First Documented 06/05/19 06/05/19 19:17 21:25 Temp 36.9 Pulse 101 Resp 18 B/P (MAP) 128/80 (96) Pulse Ox 99 O2 Delivery Room Air Capillary Refill : Less Than 3 Seconds Height/Weight/BMI Height: 5'0" Weight: 180lbs. oz. 81.242106vc; 46.00 BMI Method:Stated General Appearance: WD/WN, no apparent distress HEENT: PERRL/EOMI, normal ENT inspection Neck: normal inspection Respiratory: lungs clear, normal breath sounds, no respiratory distress Cardiovascular: regular rate, rhythm, no edema, no murmur Gastrointestinal: normal bowel sounds, soft, tenderness (suprapubic and right lower quadrant, mild to moderate) Extremities: normal inspection, no pedal edema Neurologic/Psychiatric: cosmetic chemist II-XII nml as tested, no motor/sensory deficits, alert, normal mood/affect, oriented x 3 Skin: normal color, warm/dry Progress/Results/Core Measures Results/Orders Lab Results Laboratory Tests Test 06/05/19 19:36 06/05/19 20:15 Range/Units White Blood Count 8.0 4.3-11.0 10^3/uL Red Blood Count 4.60 4.35-5.85 10^6/uL Hemoglobin 12.1 11.5-16.0 G/DL Hematocrit 37 35-52 % Mean Corpuscular Volume 80 80-99 FL Mean Corpuscular Hemoglobin 26 25-34 PG Mean Corpuscular Hemoglobin Concent 33 32-36 G/DL Red Cell Distribution Width 15.6 H 10.0-14.5 % Platelet Count 291 130-400 10^3/uL Mean Platelet Volume 9.7 7.4-10.4 FL Neutrophils (%) (Auto) 49 42-75 % Lymphocytes (%) (Auto) 37 12-44 % Monocytes (%) (Auto) 7 0-12 % Eosinophils (%) (Auto) 7 0-10 % Basophils (%) (Auto) 0 0-10 % Neutrophils # (Auto) 3.9 1.8-7.8 X 10^3 Lymphocytes # (Auto) 3.0 1.0-4.0 X 10^3 Monocytes # (Auto) 0.5 0.0-1.0 X 10^3 Eosinophils # (Auto) 0.5 H 0.0-0.3 10^3/uL Basophils # (Auto) 0.0 0.0-0.1 10^3/uL Sodium Level 141 135-145 MMOL/L Potassium Level 3.8 3.6-5.0 MMOL/L Chloride Level 108 H 98-107 MMOL/L Carbon Dioxide Level 21 21-32 MMOL/L Anion Gap 12 5-14 MMOL/L Blood Urea Nitrogen 14 7-18 MG/DL Creatinine 0.80 0.60-1.30 MG/DL Estimat Glomerular Filtration Rate > 60 BUN/Creatinine Ratio 18 Glucose Level 112 H 70-105 MG/DL Calcium Level 9.2 8.5-10.1 MG/DL Corrected Calcium 9.0 8.5-10.1 MG/DL Total Bilirubin 0.2 0.1-1.0 MG/DL Aspartate Amino Transf (AST/SGOT) 14 5-34 U/L Alanine Aminotransferase (ALT/SGPT) 16 0-55 U/L Alkaline Phosphatase 118 40-136 U/L C-Reactive Protein High Sensitivity 2.39 H 0.00-0.50 MG/DL Total Protein 7.6 6.4-8.2 GM/DL Albumin 4.2 3.2-4.5 GM/DL Urine Color RED H Urine Clarity CLOUDY Urine pH 5.0 5-9 Urine Specific [place] 1.025 H 1.016-1.022 Urine Protein 1+ H NEGATIVE Urine Glucose (UA) NEGATIVE NEGATIVE Urine Ketones NEGATIVE NEGATIVE Urine Nitrite NEGATIVE NEGATIVE Urine Bilirubin NEGATIVE NEGATIVE Urine Urobilinogen 0.2 < = 1.0 MG/DL Urine Leukocyte Esterase NEGATIVE NEGATIVE Urine RBC (Auto) 3+ H NEGATIVE Urine RBC TNTC H /HPF Urine WBC NONE /HPF Urine Squamous Epithelial Cells 2-5 /HPF Urine Crystals NONE /LPF Urine Bacteria NEGATIVE /HPF Urine Casts NONE /LPF Urine Mucus NEGATIVE /LPF Urine Culture Indicated NO My Orders Orders - SELAM FIGUEROA MD Ua Culture If Indicated (06/05/19 19:03) Urine Bedside (06/05/19 19:03) Cbc With Automated Diff (06/05/19 19:36) Comprehensive Metabolic Panel (06/05/19 19:36) Hs C Reactive Protein (06/05/19 19:36) Ed Iv/Invasive Line Start (06/05/19 19:36) Ketorolac Injection (Toradol Injection) (06/05/19 20:30) Ondansetron Injection (Zofran Injectio (06/05/19 20:45) Medications Given in ED Current Medications Medications Dose Ordered Sig/Brayan Route Start Time Stop Time Status Last Admin Dose Admin Ketorolac Tromethamine 30 mg ONCE ONCE IVP 06/05/19 20:30 06/05/19 20:31 DC 06/05/19 20:41 30 MG Ondansetron HCl 8 mg ONCE ONCE IVP 06/05/19 20:45 06/05/19 20:46 DC 06/05/19 20:41 8 MG Vital Signs/I&O 06/05/19 06/05/19 19:17 21:25 Temp 36.9 36.9 Pulse 101 85 Resp 18 18 B/P (MAP) 128/80 (96) 128/80 (96) Pulse Ox 99 O2 Delivery Room Air Blood Pressure Mean: 96 POS Progress Progress Note : Progress Note Pain was treated with Toradol which completely resolved the pain. Patient developed nausea during her ER stay which was successfully treated with Zofran. Labs were relatively unremarkable. I discussed imaging options with the patient. Unfortunately, ultrasound to evaluate for ovarian cyst is not available at this time. Risks and benefits of CT were discussed. Patient elects to forego any imaging and treat conservatively with symptom control during watchful waiting. She was symptom free at the time of dismissal. Departure Impression Primary Impression: Right lower quadrant pain Additional Impression: Nausea and vomiting Qualified Codes: R11.2 - Nausea with vomiting, unspecified Disposition: 01 HOME, SELF-CARE Condition: Improved Departure-Patient Inst. Decision time for Depature: 21:14 Referrals: [facility] (PCP/Family) Primary Care Physician Patient Instructions: Acute Abdomen (Belly Pain), Adult (DC) Add. Discharge Instructions: Drink plenty of clear liquids. Stick with just clear liquids for tonight. If you are feeling better in the morning, gradually advance her diet with small quantities of bland food as tolerated. You may use Zofran (ondansetron) as prescribed for nausea and vomiting. If symptoms are worsening, return to care. You may consider presenting to a hospital that has ultrasound services over the weekend such as one of the [facility]. All discharge instructions reviewed with patient and/or family. Voiced understanding. Scripts Ondansetron (Ondansetron Odt) 4 Mg Tab.rapdis 4 MG PO Q4H PRN for NAUSEA/VOMITING, #10 TAB Prov: SELAM FIGUEROA MD 06/05/19 Work/School Note: Work Release Form Date Seen in the Emergency Department: Jun 05, 2019 Return to Work: Jun 06, 2019 Restrictions: No Restrictions SELAM FIGUEROA MD Jun 05, 2019 21:17 POS
[2019-06-05 21:25] VITALS: BP 128/80
== END 2019-06-05 21:25 | disposition home or self-care (01) ==
LOC: EDUNIT# 19:00 → ER 19:01
DX: R10.31 Right lower quadrant pain (principal); R11.2 Nausea with vomiting, unspecified; F90.9 Attention-deficit hyperactivity disorder, unspecified type; F41.9 Anxiety disorder, unspecified; F43.10 Post-traumatic stress disorder, unspecified; F17.210 Nicotine dependence, cigarettes, uncomplicated; Z88.0 Allergy status to penicillin; Z90.49 Acquired absence of other specified parts of digestive tract
CPT/HCPCS: 36415; 80053; 81000; 84703; 85025; 86141; 96374; 96375

== ENCOUNTER 2019-09-06 20:39 | Emergency (ER) | payer SELFPAY ==
[~2019-09-06] VITALS: Ht 152 cm; Wt 110.0 kg
[~2019-09-06 20:39] MED LIST changes: +ONDA4TAB11 PO
[2019-09-06 21:11] LABS: BILIRUBIN,URINE NEGATIVE (NEGATIVE); CLARITY,URINE CLEAR; COLOR,URINE YELLOW; GLUCOSE, URINE (UA) NEGATIVE (NEGATIVE); KETONES,URINE NEGATIVE (NEGATIVE); LEUKOCYTE ESTERASE ,URINE NEGATIVE (NEGATIVE); NITRITE,URINE NEGATIVE (NEGATIVE); PROTEIN,URINE NEGATIVE (NEGATIVE)
[2019-09-06 21:48] LABS: AMORPHOUS SEDIMENT,UR LARGE AMOR URATES /LPF; BACTERIA,URINE FEW /HPF; RBC,URINE 0-2 /HPF; WBC,URINE 0-2 /HPF
--- NOTE | 2019-09-06 22:15 | NUR ---
DR. SOTO DISCUSSED CURRENT RESULTS WITH PT AND DISCUSSED FURTHER TESTING NEEDED. PT REQUESTS SOMETIME TO DECIDE IF SHE WANTS FURTHER TESTING, SUCH IV, LABS, XRAYS, CT SCANS, ETC.
--- NOTE | 2019-09-06 22:20 | NUR ---
PT HAS DECIDED SHE DOES NOT WANT IV, LABWORK, FURTHER TESTING STATING, "I JUST HATE NEEDLES AND DON'T WANT AN IV OR LABS DRAWN." AMA FORM SIGNED. DR. SOTO NOTIFIED.
[2019-09-06 22:21] VITALS: BP 140/80
--- NOTE | 2019-09-10 06:17 | ED General ---
General Chief Complaint: General Problems/Pain Stated Complaint: COUGH, N/V,HEADACHE,FEVER Nursing Triage Note: AMBULATORY TO ED ROOM 5 WITH C/ NAUSEA, ABD PAIN RATING 1 ON 0-10 SCALE, FEVER, COUGH, DENIES SORE THROAT. NO OTC PAIN MEDICATIONS. Nursing Sepsis Screen: No Definite Risk Source of Information: Patient (SOMEWHAT LIMITED HISTORIAN) History of Present Illness Date Seen by Provider: Sep 06, 2019 Time Seen by Provider: 20:50 Initial Comments PT ARRIVES VIA POV FROM HOME WITH FEMALE S.O. PT WITH MULTIPLE COMPLAINTS STATES "LITTLE BIT OF STOMACH PAIN" X 1 WEEK--PAIN IN EPIGASTRIC AREA. C/O HEADACHE C/O NAUSEA WITH ANY FOOD X 1 WEEK, VOMITED X 1 YESTERDAY, BUT HAS CONTINUED TO EAT AND DRINK NO DIARRHEA, HAD NORMAL BM TODAY NO URINARY SYMPTOMS TOOK IBUPROFEN X 1 DOSE-NO RELIEF. STATES SHE ALSO WANTS CHECKED FOR THE FLU--STATES SHE HAS BEEN IN CONTACT WITH SOMEONE WHO HAD THE FLU PT DENIES CONGESTION, STATES SHE HAS A CHRONIC "SMOKER'S COUGH" AND IS NO DIFFERENT IN ANY WAY NO SORE THROAT NO CHEST PAIN NO SHORTNESS OF BREATH DOES NOT KNOW IF SHE HAS HAD FEVER OR NOT, "BUT MAYBE" LMP --4 MONTHS AGO, NO CONTROL. HAD PAP SMEAR 08/28/19 PCP: KATHLEEN Allergies and Home Medications Allergies Coded Allergies: amoxicillin (Verified Allergy, Unknown, 03/03/19) RASH Home Medications Cefdinir 300 Mg Capsule, 300 MG PO twice a day Prescribed by: JODI LEMA on 03/29/18 1410 D-Methorphan Hb/P-Epd HCl/Bpm 118 Ml Syrup, 5 ML PO Q6H PRN for CONGESTION Prescribed by: JEANIE CASTELLANO on 02/08/191955 Ondansetron 4 Mg Tab.rapdis, 4 MG PO Q4H PRN for NAUSEA/VOMITING Prescribed by: SELAM CORONADO on 06/05/192116 Patient Home Medication List Home Medication List Reviewed: Yes Review of Systems Review of Systems Constitutional: see HPI EENTM: no symptoms reported; No ear pain, No nose congestion, No throat pain Respiratory: cough; No phlegm, No short of breath, No wheezing Cardiovascular: no symptoms reported; No chest pain, No edema, No palpitations, No syncope Gastrointestinal: see HPI, abdominal pain; No constipation, No diarrhea; nausea, vomiting Genitourinary: no symptoms reported : No Musculoskeletal: no symptoms reported Skin: no symptoms reported Psychiatric/Neurological: No Symptoms Reported Hematologic/Lymphatic: No Symptoms Reported Immunological/Allergic: no symptoms reported Past Mdjggib-Ocrbbt-Yarzgk Hx Past Med/Social Hx: Reviewed and Corrections made Patient Social History Alcohol Use: Denies Use Recreational Drug Use: Yes (THC, METH--DNEIS IV USE) Drug of Choice: THC, METH--DENIES IV USE Smoking Status: Current Everyday Smoker (1 PPD) Type Used: Cigarettes (1 PPD) 2nd Hand Smoke Exposure: Yes Recent Foreign Travel: No Contact w/Someone Who Travel: No Recent Infectious Disease Expo: No Recent Hopitalizations: No Physical Abuse: No Sexual Abuse: No Mistreated: No Fear: No Seasonal Allergies Seasonal Allergies: No Past Medical History Surgeries: Yes Appendectomy Respiratory: No Cardiac: No Neurological: No : No Female Reproductive Disorders: Menstrual Problems Sexually Transmitted Disease: No Genitourinary: No Gastrointestinal: Yes Ulcer Musculoskeletal: No Endocrine: No HEENT: No Loss of Vision: Denies Hearing Impairment: Denies Cancer: No Psychosocial: Yes ADD/ADHD, Anxiety, PTSD Integumentary: No Blood Disorders: No Physical Exam Vital Signs Vital Signs - First Documented 09/06/19 09/06/19 20:49 22:21 Temp 36.1 Pulse 108 Resp 18 B/P (MAP) 145/82 (103) Pulse Ox 100 O2 Delivery Room Air Capillary Refill : Less Than 3 Seconds Height, Weight, BMI Height: 5'0" Weight: 180lbs. oz. [id number]; 47.00 BMI Method:Stated General Appearance: No Apparent Distress, Obese, Other (SMILING, LAUGHING, PLAYING ON PHONE WITH FEMALE S.O. TALKS NON-STOP. DOES NOT APPEAR TO BE IN ANY DISCOMFORT OR DISTRESS. WALKS UPRIGHT AND MOVES WITHOUT DIFFICULTY) HEENT: PERRL/EOMI, TMs Normal, Normal ENT Inspection, Pharynx Normal Neck: Full Range of Motion, Normal Inspection, Non Tender, Supple Respiratory: Normal Breath Sounds, No Accessory Muscle Use, No Respiratory Distress Cardiovascular: Regular Rate, Rhythm, No Edema, No JVD, No Murmur, Normal Peripheral Pulses Gastrointestinal: Normal Bowel Sounds, No Organomegaly, No Pulsatile Mass, Soft, Tenderness (EPIGASTRIC AREA WITH MODERATE TENDERNESS) Back: No CVA Tenderness Extremity: Normal Inspection Neurologic/Psychiatric: Alert, Oriented x3, No Motor/Sensory Deficits, Normal 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, 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 Skin: Normal Color, Warm/Dry Progress/Results/Core Measures Suspected Sepsis Recent Fever Within 48 Hours: No Infection Criteria Present: Suspected New Infection New/Unexplained Altered Menta: No Sepsis Screen: No Definite Risk SIRS Temperature: Pulse: 98 Respiratory Rate: 18 Blood Pressure 140 /80 Mean: 103 Results/Orders Vital Signs/I&O Capillary Refill : Less Than 3 Seconds Blood Pressure Mean: 103 Progress Note : Progress Note REVIEWED INITIAL TEST RESULTS WITH PT AND ADVISED THAT SHE NEEDED ADDITIONAL TESTS, INCLUDING IV, LAB AND CT SCAN, TO FURTHER EVALUATE HER ABDOMINAL PAIN, SHE NOW REFUSES, STATES SHE "HATES NEEDLES" PT SIGNED OUT AMA, RISKS EXPLAINED TO PATIENT. Departure Impression Primary Impression: Left against medical advice Disposition: 07 AGAINST MEDICAL ADVICE Condition: Against Medical Advice Departure-Patient Inst. Referrals: [facility]/KRISTINE (PCP) Primary Care Physician DANIEL SOTO DO Sep 10, 2019 06:17
== END 2019-09-06 22:21 | disposition left against medical advice (07) ==
LOC: EDUNIT# 20:39 → ER 20:41
DX: R05 Cough (principal); R11.2 Nausea with vomiting, unspecified; R10.9 Unspecified abdominal pain; R50.9 Fever, unspecified
CPT/HCPCS: 81000; 84703; 87088; 87430; 87804

== ENCOUNTER 2019-10-23 14:19 | Emergency (ER) | payer SELFPAY ==
[~2019-10-23] VITALS: Ht 152 cm; Wt 99.0 kg
--- OUTSIDE RECORDS SUMMARY | 2019-10-23 14:27 | XMS REPORT | Continuity of Care Document ---
Author Organization Unknown Address Unknown Phone Unavailable Allergies Active Description Code Type Severity Reaction Onset Reported/Identified Relationship to Patient Clinical Status Yes No Allergy Information Available [id number] Drug Allergy Unknown N/A 018 Yes No Known Drug Allergies [id number] Drug Allergy Unknown N/A 03/29/2018 Yes amoxicillin [id number] Drug Aller gy Unknown N/A 03/03/2019 Medications There is no data. Problems Date Dx Coded Attending Type Code Diagnosis Diagnosed By 03/29/2018 JODI LEMA MD Ot F17.210 NICOTINE DEPENDENCE, CIGARETTES, UNCOMPL 03/29/2018 JODI LEMA MD Ot N39 .0 URINARY TRACT INFECTION, SITE NOT SPECIF 03/29/2018 JODI LEMA MD Ot R10.33 PERIUMBILICAL PAIN 03/29/2018 JODI LEMA MD Ot Z90.49 ACQUIRED ABSENCE OF OTHER SPECIFIED PART 03/29/2018 JODI LEMA MD Ot Z90.89 ACQUIRED ABSENCE OF OTHER ORGANS 04/01/2018 JODI LEMA MD Ot F17.210 NICOTINE DEPENDENCE, CIGARETTES, UNCOMPL 04/01/2018 JODI LEMA MD Ot N39 .0 URINARY TRACT INFECTION, SITE NOT SPECIF 04/01/2018 JODI LEMA MD Ot R10.33 PERIUMBILICAL PAIN 04/01/2018 JODI LEMA MD Ot Z90.49 ACQUIRED ABSENCE OF OTHER SPECIFIED PART 04/01/2018 JODI LEMA MD Ot Z90.89 ACQUIRED ABSENCE OF OTHER ORGANS 12/25/2018 JEANIE CASTELLANO APRN Ot F17.210 NICOTINE DEPENDENCE, CIGARETTES, UNCOMPL 12/25/2018 JEANIE CASTELLANO APRN Ot R11 .2 NAUSEA WITH VOMITING, UNSPECIFIED 12/25/2018 JEANIE CASTELLANO APRN Ot Z90.49 ACQUIRED ABSENCE OF OTHER SPECIFIED PART 12/30/2018 JEANIE CASTELLANO APRN Ot F17.210 NICOTINE DEPENDENCE, CIGARETTES, UNCOMPL 12/30/2018 JEANIE CASTELLANO BEAUTY ARTIST Ot R11 .2 NAUSEA WITH VOMITING, UNSPECIFIED 12/30/2018 JEANIE CASTELLANO BEAUTY ARTIST Ot Z90.49 ACQUIRED ABSENCE OF OTHER SPECIFIED PART 02/14/2019 JEANIE CASTELLANO BEAUTY ARTIST Ot B34 .9 VIRAL INFECTION, UNSPECIFIED 02/14/2019 JEANIE CASTELLANO BEAUTY ARTIST Ot F17.210 NICOTINE DEPENDENCE, CIGARETTES, UNCOMPL 02/14/2019 JEANIE CASTELLANO BEAUTY ARTIST Ot R05 COUGH 02/14/2019 JEANIE CASTELLANO BEAUTY ARTIST Ot Z90.49 ACQUIRED ABSENCE OF OTHER SPECIFIED PART 09/09/2019 BRITTANY DO, DANIEL K Ot R05 COUGH 09/09/2019 BRITTANY DO, DANIEL K Ot R10.9 UNSPECIFIED ABDOMINAL PAIN 09/09/2019 BRITTANY DO, DANIEL K Ot R11.2 NAUSEA WITH VOMITING, UNSPECIFIED 09/09/2019 BRITTANY DO, DANIEL K Ot R50.9 FEVER, UNSPECIFIED Procedures There is no data. Results Test Result Range Complete urinalysis with reflex to cultu re - 03/29/18 11:57 Urine color determination YELLOW NRG Urine clarity determination SLIGHTLY CLOUDY NRG Urine pH measurement by test strip 5 5-9 Specific gravity of urine by test strip 1.015 1.016-1.022 Urine protein assay by test strip, semi-quantitative NEGATIVE NEGATIVE Urine glucose detection by automated test strip NE GATIVE NEGATIVE Erythrocytes detection in urine sediment by light micr oscopy NEGATIVE NEGATIVE Urine ketones detection by automated test strip NE GATIVE NEGATIVE Urine nitrite detection by test strip NEGATIVE NEGATIVE Urine total bilirubin detection by test strip NEGA TIVE NEGATIVE Urine urobilinogen measurement by automated test strip (mass/volume) NORMAL NORMAL Urine leukocyte esterase detection by dipstick 3+ NEGATIVE Automated urine sediment erythrocyte cou nt by microscopy (number/high power field) NONE NRG Automated urine sediment leukocyte count by microscopy (number/high power field) [HPF] NRG Bacteria detection in urine sediment by light microsco py FEW NRG Squamous epithelial cells detection in u rine sediment by light microscopy 5-10 NRG Crystals detection in urine sediment by light microsco py NONE NRG Casts detection in urine sediment by light microscopy NONE NRG Mucus detection in urine sediment by light microscopy NEGATIVE NRG Complete urinalysis with reflex to culture YES NRG Urine beta human chorionic gonadotropin (hCG) measurement - 03/29/18 11:57 Urine beta human chorionic gonadotropin (hCG) measurem ent NEGATIVE NEGATIVE Bacterial urine culture - 03/29/18 11:57 Bacterial urine culture SEE REPORT NRG COLONY COUNT . NR Complete blood count (CBC) with automate d white blood cell (WBC) differential - 03/29/18 12:01 Blood leukocytes automated count (number/volume) 7.2 10*3/uL 4.3-11.0 Blood erythrocytes automated count (number/volume) 4.82 10*6/uL 4.35-5.85 Venous blood hemoglobin measurement (mass/volume) 13.8 g/dL 11.5-16.0 Blood hematocrit (volume fraction) 40 % 35-52 Automated erythrocyte mean corpuscular volume 82 [ foz_us] 80-99 Automated erythrocyte mean corpuscular h emoglobin (mass per erythrocyte) 29 pg 25-34 Automated erythrocyte mean corpuscular h emoglobin concentration measurement (mass/volume) 35 g/dL 32-36 Automated erythrocyte distribution width ratio 13. 8 % 10.0- 14.5 Automated blood platelet count (count/volume) 256 10*3/uL 130-400 Automated blood platelet mean volume measurement 10.0 [foz_us] 7.4-10.4 Automated blood neutrophils/100 leukocytes 51 % 42-75 Automated blood lymphocytes/100 leukocytes 39 % 12-44 Blood monocytes/100 leukocytes 5 % 0-12 Automated blood eosinophils/100 leukocytes 4 % 0-10 Automated blood basophils/100 leukocytes 0 % 0-10 Blood neutrophils automated count (number/volume) 3.7 10*3 1.8-7.8 Blood lymphocytes automated count (number/volume) 2.8 10*3 1.0-4.0 Blood monocytes automated count (number/volume) 0. 4 10*3 0.0-1.0 Automated eosinophil count 0.3 10*3/uL 0 .0-0.3 Automated blood basophil count (count/volume) 0.0 10*3/uL 0.0-0.1 Comprehensive metabolic panel - 03/29/18 12:01 Serum or plasma sodium measurement (moles/volume) 139 mmol/L 135-145 Serum or plasma potassium measurement (moles/volume) 3.8 mmol/L 3.6-5.0 Serum or plasma chloride measurement (moles/volume) 106 mmol/L 98-107 Carbon dioxide 22 mmol/L 21-32 Serum or plasma anion gap determination (moles/volume) 11 mmol/L 5-14 Serum or plasma urea nitrogen measurement (mass/volume ) 9 mg/dL 7-18 Serum or plasma creatinine measurement (mass/volume) 0.74 mg/dL 0.60-1.30 Serum or plasma urea nitrogen/creatinine mass ratio 12 NRG Serum or plasma creatinine measurement w ith calculation of estimated glomerular filtration rate > NRG Serum or plasma glucose measurement (mass/volume) 91 mg/dL 70-105 Serum or plasma calcium measurement (mass/volume) 10.0 mg/dL 8.5-10.1 Serum or plasma total bilirubin measurement (mass/volu me) 0.4 mg/dL 0.1-1.0 Serum or plasma alkaline phosphatase douglas surement (enzymatic activity/volume) 125 U/L 40-136 Serum or plasma aspartate aminotransfera se measurement (enzymatic activity/volume) 18 U/L 5-34 Serum or plasma alanine aminotransferase measurement (enzymatic activity/volume) 15 U/L 0-55 Serum or plasma protein measurement (mass/volume) 8.3 g/dL 6.4-8.2 Serum or plasma albumin measurement (mass/volume) 4.6 g/dL 3.2-4.5 Complete blood count (CBC) with automate d white blood cell (WBC) differential - 03/03/19 14:48 Blood leukocytes automated count (number/volume) 7.4 10*3/uL 4.3-11.0 Blood erythrocytes automated count (number/volume) 4.52 10*6/uL 4.35-5.85 Venous blood hemoglobin measurement (mass/volume) 12.0 g/dL 11.5-16.0 Blood hematocrit (volume fraction) 36 % 35-52 Automated erythrocyte mean corpuscular volume 80 [ foz_us] 80-99 Automated erythrocyte mean corpuscular h emoglobin (mass per erythrocyte) 27 pg 25-34 Automated erythrocyte mean corpuscular h emoglobin concentration measurement (mass/volume) 33 g/dL 32-36 Automated erythrocyte distribution width ratio 14. 7 % 10.0- 14.5 Automated blood platelet count (count/volume) 328 10*3/uL 130-400 Automated blood platelet mean volume measurement 9.7 [foz_us] 7.4-10.4 Automated blood neutrophils/100 leukocytes 52 % 42-75 Automated blood lymphocytes/100 leukocytes 34 % 12-44 Blood monocytes/100 leukocytes 7 % 0-12 Automated blood eosinophils/100 leukocytes 7 % 0-10 Automated blood basophils/100 leukocytes 0 % 0-10 Blood neutrophils automated count (number/volume) 3.8 10*3 1.8-7.8 Blood lymphocytes automated count (number/volume) 2.6 10*3 1.0-4.0 Blood monocytes automated count (number/volume) 0. 5 10*3 0.0-1.0 Automated eosinophil count 0.5 10*3/uL 0 .0-0.3 Automated blood basophil count (count/volume) 0.0 10*3/uL 0.0-0.1 PT panel in platelet poor plasma by coag ulation assay - 03/03/19 14:48 Prothrombin time (PT) in platelet poor plasma by coagu lation assay 13.2 s 12.2-14.7 INR in platelet poor plasma or blood by coagulation as say 1.0 0.8-1.4 Activated partial thromboplastin time (a PTT) in platelet poor plasma bycoagulation assay - 03/03/19 14:48 Activated partial thromboplastin time (a PTT) in platelet poor plasma bycoagulation assay 28 s 24-35 Comprehensive metabolic panel - 03/03/19 14:48 Serum or plasma sodium measurement (moles/volume) 143 mmol/L 135-145 Serum or plasma potassium measurement (moles/volume) 3.9 mmol/L 3.6-5.0 Serum or plasma chloride measurement (moles/volume) 109 mmol/L 98-107 Carbon dioxide 23 mmol/L 21-32 Serum or plasma anion gap determination (moles/volume) 11 mmol/L 5-14 Serum or plasma urea nitrogen measurement (mass/volume ) 10 mg/dL 7-18 Serum or plasma creatinine measurement (mass/volume) 0.77 mg/dL 0.60-1.30 Serum or plasma urea nitrogen/creatinine mass ratio 13 NRG Serum or plasma creatinine measurement w ith calculation of estimated glomerular filtration rate > NRG Serum or plasma glucose measurement (mass/volume) 103 mg/dL 70-105 Serum or plasma calcium measurement (mass/volume) 9.7 mg/dL 8.5-10.1 Serum or plasma total bilirubin measurement (mass/volu me) 0.3 mg/dL 0.1-1.0 Serum or plasma alkaline phosphatase douglas surement (enzymatic activity/volume) 129 U/L 40-136 Serum or plasma aspartate aminotransfera se measurement (enzymatic activity/volume) 17 U/L 5-34 Serum or plasma alanine aminotransferase measurement (enzymatic activity/volume) 21 U/L 0-55 Serum or plasma protein measurement (mass/volume) 8.0 g/dL 6.4-8.2 Serum or plasma albumin measurement (mass/volume) 4.2 g/dL 3.2-4.5 CALCIUM CORRECTED 9.5 mg/dL 8.5-10.1 Magnesium - 03/03/19 14:48 Magnesium 2.1 mg/dL 1.6-2.4 Serum or plasma troponin i.cardiac measu rement (mass/volume) - 03/03/19 14:48 Serum or plasma troponin i.cardiac measurement (mass/v olume) < ng/mL <0.028 Myoglobin, serum - 03/03/19 14:48 Myoglobin, serum 25.9 ng/mL 10.0-92.0 Complete urinalysis with reflex to cultu re - 03/03/19 15:10 Urine color determination YELLOW NRG Urine clarity determination VERY CLOUDY NRG Urine pH measurement by test strip 5 5-9 Specific gravity of urine by test strip 1.025 1.016-1.022 Urine protein assay by test strip, semi-quantitative 2+ NEGATIVE Urine glucose detection by automated test strip NE GATIVE NEGATIVE Erythrocytes detection in urine sediment by light micr oscopy 5+ NEGATIVE Urine ketones detection by automated test strip 1+ NEGATIVE Urine nitrite detection by test strip NEGATIVE NEGATIVE Urine total bilirubin detection by test strip NEGA TIVE NEGATIVE Urine urobilinogen measurement by automated test strip (mass/volume) 1 mg/dL NORMAL Urine leukocyte esterase detection by dipstick 2+ NEGATIVE Automated urine sediment erythrocyte cou nt by microscopy (number/high power field) TNTC NRG Automated urine sediment leukocyte count by microscopy (number/high power field) [HPF] NRG Bacteria detection in urine sediment by light microsco py LARGE NRG Crystals detection in urine sediment by light microsco py NONE NRG Casts detection in urine sediment by light microscopy NONE NRG Mucus detection in urine sediment by light microscopy MODERATE NRG Complete urinalysis with reflex to culture YES NRG Amorphous sediment detection in urine sediment by ligh t microscopy LARGE DUC URATES NRG Urine drug screening test - 03/03/19 15: 10 Urine phencyclidine detection by screening method NEGATIVE NEGATIVE Urine benzodiazepines detection by screening method NEGATIVE NEGATIVE Urine cocaine detection NEGATIVE NEGATI VE Urine amphetamines detection by screening method N EGATIVE NEGATIVE Urine methamphetamine detection by screening method NEGATIVE NEGATIVE Urine cannabinoids detection by screening method N EGATIVE NEGATIVE Urine opiates detection by screening method NEGATI VE NEGATIVE Urine barbiturates detection NEGATIVE N EGATIVE Screening urine tricyclic antidepressants detection NEGATIVE NEGATIVE Urine methadone detection by screening method NEGA TIVE NEGATIVE Urine oxycodone detection NEGATIVE NEGA TIVE Urine propoxyphene detection NEGATIVE N EGATIVE Bacterial urine culture - 03/03/19 15:10 Bacterial urine culture 3 OR MORE NRG COLONY COUNT >100,000/ML NRG FTX;REPORTABLE GRAM POSITIVES, SUGGESTING PROBABLE NRG FREE TEXT ENTRY 2 COLLECTION CONTAMINATION WITH SK IN IVONNE NRG FREE TEXT ENTRY 3 NO SUSCEPTIBILITY PERFORMED NRG Complete blood count (CBC) with automate d white blood cell (WBC) differential - 06/05/19 19:36 Blood leukocytes automated count (number/volume) 8.0 10*3/uL 4.3-11.0 Blood erythrocytes automated count (number/volume) 4.60 10*6/uL 4.35-5.85 Venous blood hemoglobin measurement (mass/volume) 12.1 g/dL 11.5-16.0 Blood hematocrit (volume fraction) 37 % 35-52 Automated erythrocyte mean corpuscular volume 80 [ foz_us] 80-99 Automated erythrocyte mean corpuscular h emoglobin (mass per erythrocyte) 26 pg 25-34 Automated erythrocyte mean corpuscular h emoglobin concentration measurement (mass/volume) 33 g/dL 32-36 Automated erythrocyte distribution width ratio 15. 6 % 10.0- 14.5 Automated blood platelet count (count/volume) 291 10*3/uL 130-400 Automated blood platelet mean volume measurement 9.7 [foz_us] 7.4-10.4 Automated blood neutrophils/100 leukocytes 49 % 42-75 Automated blood lymphocytes/100 leukocytes 37 % 12-44 Blood monocytes/100 leukocytes 7 % 0-12 Automated blood eosinophils/100 leukocytes 7 % 0-10 Automated blood basophils/100 leukocytes 0 % 0-10 Blood neutrophils automated count (number/volume) 3.9 10*3 1.8-7.8 Blood lymphocytes automated count (number/volume) 3.0 10*3 1.0-4.0 Blood monocytes automated count (number/volume) 0. 5 10*3 0.0-1.0 Automated eosinophil count 0.5 10*3/uL 0 .0-0.3 Automated blood basophil count (count/volume) 0.0 10*3/uL 0.0-0.1 Comprehensive metabolic panel - 06/05/19 19:36 Serum or plasma sodium measurement (moles/volume) 141 mmol/L 135-145 Serum or plasma potassium measurement (moles/volume) 3.8 mmol/L 3.6-5.0 Serum or plasma chloride measurement (moles/volume) 108 mmol/L 98-107 Carbon dioxide 21 mmol/L 21-32 Serum or plasma anion gap determination (moles/volume) 12 mmol/L 5-14 Serum or plasma urea nitrogen measurement (mass/volume ) 14 mg/dL 7-18 Serum or plasma creatinine measurement (mass/volume) 0.80 mg/dL 0.60-1.30 Serum or plasma urea nitrogen/creatinine mass ratio 18 NRG Serum or plasma creatinine measurement w ith calculation of estimated glomerular filtration rate > NRG Serum or plasma glucose measurement (mass/volume) 112 mg/dL 70-105 Serum or plasma calcium measurement (mass/volume) 9.2 mg/dL 8.5-10.1 Serum or plasma total bilirubin measurement (mass/volu me) 0.2 mg/dL 0.1-1.0 Serum or plasma alkaline phosphatase douglas surement (enzymatic activity/volume) 118 U/L 40-136 Serum or plasma aspartate aminotransfera se measurement (enzymatic activity/volume) 14 U/L 5-34 Serum or plasma alanine aminotransferase measurement (enzymatic activity/volume) 16 U/L 0-55 Serum or plasma protein measurement (mass/volume) 7.6 g/dL 6.4-8.2 Serum or plasma albumin measurement (mass/volume) 4.2 g/dL 3.2-4.5 CALCIUM CORRECTED 9.0 mg/dL 8.5-10.1 Serum or plasma C reactive protein measu rement (mass/volume) - 06/05/19 19:36 Serum or plasma C reactive protein measurement (mass/v olume) 2.39 mg/dL 0.00-0.50 Complete urinalysis with reflex to cultu re - 06/05/19 20:15 Urine color determination RED NRG Urine clarity determination CLOUDY NR G Urine pH measurement by test strip 5.0 5-9 Specific gravity of urine by test strip 1.025 1.016-1.022 Urine protein assay by test strip, semi-quantitative 1+ NEGATIVE Urine glucose detection by automated test strip NE GATIVE NEGATIVE Erythrocytes detection in urine sediment by light micr oscopy 3+ NEGATIVE Urine ketones detection by automated test strip NE GATIVE NEGATIVE Urine nitrite detection by test strip NEGATIVE NEGATIVE Urine total bilirubin detection by test strip NEGA TIVE NEGATIVE Urine urobilinogen measurement by automated test strip (mass/volume) 0.2 mg/dL < = 1.0 Urine leukocyte esterase detection by dipstick NEG ATIVE NEGATIVE Automated urine sediment erythrocyte cou nt by microscopy (number/high power field) TNTC NRG Automated urine sediment leukocyte count by microscopy (number/high power field) NONE NRG Bacteria detection in urine sediment by light microsco py NEGATIVE NRG Squamous epithelial cells detection in u rine sediment by light microscopy 2-5 NRG Crystals detection in urine sediment by light microsco py NONE NRG Casts detection in urine sediment by light microscopy NONE NRG Mucus detection in urine sediment by light microscopy NEGATIVE NRG Complete urinalysis with reflex to culture NO NRG SUREPATH PAP RFX HPV mRNA E6/E7 - 00:00 CLINICAL INFORMATION: NR LMP: 04/2019 NRG PREV. PAP: NONE NRG PREV. BX: NRG SOURCE: Cervix NRG STATEMENT OF ADEQUACY: NRG INTERPRETATION/RESULT: NRG RESERVATIONIST: NRG COMMENT NRG Urine beta human chorionic gonadotropin (hCG) measurement - 09/06/19 21:02 Urine beta human chorionic gonadotropin (hCG) measurem ent NEGATIVE NEGATIVE Complete urinalysis with reflex to cultu re - 09/06/19 21:02 Urine color determination YELLOW NRG Urine clarity determination CLEAR NR G Urine pH measurement by test strip 6.0 5-9 Specific gravity of urine by test strip >= 1.016-1.022 Urine protein assay by test strip, semi-quantitative NEGATIVE NEGATIVE Urine glucose detection by automated test strip NE GATIVE NEGATIVE Erythrocytes detection in urine sediment by light micr oscopy NEGATIVE NEGATIVE Urine ketones detection by automated test strip NE GATIVE NEGATIVE Urine nitrite detection by test strip NEGATIVE NEGATIVE Urine total bilirubin detection by test strip NEGA TIVE NEGATIVE Urine urobilinogen measurement by automated test strip (mass/volume) 1.0 mg/dL < = 1.0 Urine leukocyte esterase detection by dipstick NEG ATIVE NEGATIVE Automated urine sediment erythrocyte cou nt by microscopy (number/high power field) [HPF] NRG Automated urine sediment leukocyte count by microscopy (number/high power field) [HPF] NRG Bacteria detection in urine sediment by light microsco py FEW NRG Squamous epithelial cells detection in u rine sediment by light microscopy 5-10 NRG Crystals detection in urine sediment by light microsco py PRESENT NRG Casts detection in urine sediment by light microscopy NONE NRG Mucus detection in urine sediment by light microscopy MODERATE NRG Complete urinalysis with reflex to culture YES NRG Amorphous sediment detection in urine sediment by ligh t microscopy LARGE DUC URATES NRG Bacterial urine culture - 09/06/19 21:02 Bacterial urine culture 3 OR MORE NRG COLONY COUNT 20,000 CFU/ML NRG FTX;REPORTABLE (GRAM POSITIVE) SUGGESTING PROBABLE NRG FREE TEXT ENTRY 2 COLLECTION CONTAMINATION WITH SK IN NRG FREE TEXT ENTRY 3 IVONNE. NO SUSCEPTIBILITY PERFOR MED NRG Streptococcus pyogenes antigen detection - 09/06/19 21:07 Streptococcus pyogenes antigen detection NEGATIVE NEGATIVE Influenza virus A and B antigen detectio n - 09/06/19 21:07 FLU RESULT NEGATIVE FOR INFLUENZA A AND B ANTIGENS BY IA NRG Bacterial throat culture - 09/06/19 21:0 7 Bacterial throat culture NBS NRG Encounters ACCT No. Visit Date/Time Discharge Status Pt. Type Provider Facility Loc./Unit Complaint [id number] 09/24/2019 13:30:00 09/24/2019 23:59: 59 [facility] Outpatient TEJAL DASH CSEK ANANYA [id number] 08/28/2019 15:20:00 Document Registration [id number] 09/06/2019 20:41:00 020 22:21:00 DIS Outpatient DANIEL SOTO DO, [facility] ER COUGH, N/V,HEADACHE,FEV ER [id number] 06/05/2019 19:01:00 019 21:25:00 DIS Emergency CAROLINA CEJA, SELAM Ding [facility] ER ABD PAIN [id number] 03/03/2019 14:16:00 019 16:00:00 DIS Emergency PATRICIO CEJA, LAURA Wooten [facility] ER CHEST PAIN [id number] 02/08/2019 19:11:00 019 20:30:00 DIS Outpatient JEANIE CASTELLANO APRN [facility] ER COUGH,FEVER [id number] 12/25/2018 12:07:00 019 12:51:00 DIS Emergency JEANIE CASTELLANO APRN [facility] ER N/V [id number] 03/29/2018 11:21:00 018 14:34:00 DIS Emergency PITA CEJA, JODI Dunaway [facility] ER THROWING UP [id number] 10/23/2019 14:22:[address] Emergency DANIEL SOTO DO [facility] ER ABNORMAL PERIOD
--- NOTE | 2019-10-23 14:37 | ED GU-Female ---
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 WAS AT [facility] EARLIER FOR THIS PROBLEM. SHE STATES "THEY TOLD ME TO COME HERE BECAUSE THEY DIDN'T HAVE THE PROPER EQUIPMENT" STATES "I'VE BEEN HAVING PROBLEMS WITH MY MENSTRUAL CYCLE" STATES SHE HAD NOT HAD A PERIOD FOR 6 MONTHS, AND THEN FOR THE LAST MONTH, SHE HAS BEEN BLEEDING OFF AND ON. STATES SHE HAS USED 6 PADS TODAY STATES SHE OCCASIONALLY PASSES CLOTS STATES SHE OCCASIONALLY FEELS LIGHTHEADED NO ABDOMINAL PAIN/CRAMPING NO FEVER NO PROBLEMS URINATING NO EXCESSIVE BRUISING OR BLEEDING FROM OTHER SITES SYMPTOMS NO DIFFERENT TODAY IN ANY WAY HAS NOT SOUGHT CARE UNTIL TODAY STATES HER PERIODS HAVE ALWAYS BEEN IRREGULAR--USUALLY GOES 2-3 MONTHS WITHOUT A PERIOD, AND THEN PERIODS ONLY LAST 3 DAYS HAS NOT BEEN ON CONTROL SINCE AGE 14 PT CURRENTLY HAS A FEMALE PARTNER PCP: [facility] Allergies and Home Medications Allergies Coded Allergies: amoxicillin (Verified Allergy, Unknown, 03/03/19) RASH Home Medications Cefdinir 300 Mg Capsule, 300 MG PO twice a day Prescribed by: JODI LEMA on 03/29/18 1410 D-Methorphan Hb/P-Epd HCl/Bpm 118 Ml Syrup, 5 ML PO Q6H PRN for CONGESTION Prescribed by: JEANIE CASTELLANO on 02/08/191955 Norethindrone-Ethinyl Estrad 1 Each Tablet, 4 TAB PO DAILY Prescribed by: DANIEL SOTO on 10/23/19 1509 Ondansetron 4 Mg Tab.rapdis, 4 MG PO Q4H PRN for NAUSEA/VOMITING Prescribed by: SELAM CORONADO on 06/05/192116 Ondansetron 4 Mg Tab.rapdis, 4 MG PO Q4H Prescribed by: DANIEL SOTO on 10/23/19 1509 Patient Home Medication List Home Medication List Reviewed: Yes Review of Systems Review of Systems Constitutional: see HPI; No chills, No diaphoresis; dizziness; No fever EENTM: no symptoms reported Respiratory: no symptoms reported Cardiovascular: no symptoms reported Gastrointestinal: no symptoms reported; No abdominal pain, No nausea, No vomiting Genitourinary: see HPI Musculoskeletal: no symptoms reported Skin: no symptoms reported Psychiatric/Neurological: No Symptoms Reported Endocrine: No Symptoms Reported Hematologic/Lymphatic: See HPI Past Ypzwlsv-Zfyshs-Xrejmm Hx Past Med/Social Hx: Reviewed and Corrections made Patient Social History Alcohol Use: Rarely Uses Recreational Drug Use: Yes (THC, METH--DENIES IV USE) Drug of Choice: THC, METH--DENIES IV USE Smoking Status: Current Everyday Smoker (1 PPD) Type Used: Cigarettes 2nd Hand Smoke Exposure: Yes Recent Foreign Travel: No Contact w/Someone Who Travel: No Recent Hopitalizations: No Seasonal Allergies Seasonal Allergies: No Past Medical History Surgeries: Yes Appendectomy Respiratory: No Cardiac: No Neurological: No Reproductive Disorders: Yes Female Reproductive Disorders: Menstrual Problems Sexually Transmitted Disease: No Genitourinary: No Gastrointestinal: Yes Ulcer Musculoskeletal: No Endocrine: No HEENT: No Loss of Vision: Denies Hearing Impairment: Denies Cancer: No Psychosocial: Yes (SUBSTANCE ABUSE) ADD/ADHD, Anxiety, PTSD Integumentary: No Blood Disorders: No Physical Exam Vital Signs Vital Signs - First Documented 10/23/19 14:27 Temp 36.7 Pulse 113 Resp 16 B/P (MAP) 138/81 (100) Pulse Ox 98 Capillary Refill : Height, Weight, BMI Height: 5'0" Weight: 180lbs. oz. 81.958524xo; 47.00 BMI Method:Stated General Appearance: WD/WN, no apparent distress, obese, other (NONCHALANT, LAYING OUTSTRETCHED. 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 nml as tested, no motor/sensory deficits, alert, normal mood/affect, oriented x 3 Skin: normal color, warm/dry; No pallor Progress/Results/Core Measures Suspected Sepsis SIRS Temperature: Pulse: Respiratory Rate: Laboratory Tests 10/23/19 14:45: White Blood Count 6.8 Blood Pressure / Mean: Laboratory Tests 10/23/19 14:45: INR Comment 1.1, Platelet Count 277 Results/Orders Lab Results Laboratory Tests Test 10/23/19 14:45 Range/Units White Blood Count 6.8 4.3-11.0 10^3/uL Red Blood Count 4.98 4.35-5.85 10^6/uL Hemoglobin 13.4 11.5-16.0 G/DL Hematocrit 40 35-52 % Mean Corpuscular Volume 80 80-99 FL Mean Corpuscular Hemoglobin 27 25-34 PG Mean Corpuscular Hemoglobin Concent 34 32-36 G/DL Red Cell Distribution Width 15.2 H 10.0-14.5 % Platelet Count 277 130-400 10^3/uL Mean Platelet Volume 10.5 H 7.4-10.4 FL Neutrophils (%) (Auto) 46 42-75 % Lymphocytes (%) (Auto) 42 12-44 % Monocytes (%) (Auto) 7 0-12 % Eosinophils (%) (Auto) 5 0-10 % Basophils (%) (Auto) 0 0-10 % Neutrophils # (Auto) 3.1 1.8-7.8 X 10^3 Lymphocytes # (Auto) 2.9 1.0-4.0 X 10^3 Monocytes # (Auto) 0.5 0.0-1.0 X 10^3 Eosinophils # (Auto) 0.3 0.0-0.3 10^3/uL Basophils # (Auto) 0.0 0.0-0.1 10^3/uL Prothrombin Time 14.5 12.2-14.7 SEC INR Comment 1.1 0.8-1.4 Activated Partial Thromboplast Time 29 24-35 SEC My Orders Orders - DANIEL SOTO DO Urine Bedside (10/23/19 14:25) Ed Iv/Invasive Line Start (10/23/19 14:31) Cbc With Automated Diff (10/23/19 14:31) Protime With Inr (10/23/19 14:31) Partial Thromboplastin Time (10/23/19 14:31) Vital Signs/I&O 10/23/19 14:27 Temp 36.7 Pulse 113 Resp 16 B/P (MAP) 138/81 (100) Pulse Ox 98 Capillary Refill : Progress Note : Progress Note DID NOT GO THROUGH ANY PADS DURING ER STAY UNEVENTFUL STAY Departure Impression Primary Impression: DUB (dysfunctional uterine bleeding) Disposition: 01 HOME, SELF-CARE Condition: Stable Departure-Patient Inst. Referrals: [facility] (PCP/Family) Primary Care Physician Patient Instructions: Absent or Irregular Periods, IRREGULAR VAGINAL BLEEDING Add. Discharge Instructions: LOTS OF CLEAR LIQUIDS TAKE MULTIVITAMIN WITH IRON DAILY FOLLOW UP WITH [facility] NEXT WEEK FOR FURTHER CARE All discharge instructions reviewed with patient and/or family. Voiced understanding. Scripts Ondansetron (Ondansetron Odt) 4 Mg Tab.rapdis 4 MG PO Q4H for Nausea/Vomiting, #10 TAB Prov: DANIEL SOTO DO 10/23/19 Norethindrone-Ethinyl Estrad (Ortho-Novum 1-35-28 Tablet) 1 Each Tablet 4 TAB PO DAILY for 5 Days, #1 PKT Prov: DANIEL SOTO DO 10/23/19 DANIEL SOTO DO Oct 23, 2019 14:37
[2019-10-23] MEDS ORDERED: NORE1TAB4 PO (15:09)
[2019-10-23] MEDS ORDERED: ONDA4TAB11 PO (15:09)
[2019-10-23 15:22] LABS: BASOPHILS % (AUTO) 0 % (0-10); EOSINOPHILS # (AUTO) 0.3 10^3/uL (0.0-0.3); EOSINOPHILS % (AUTO) 5 % (0-10); HEMATOCRIT 40 % (35-52); HEMOGLOBIN 13.4 G/DL (11.5-16.0); LYMPHOCYTES # (AUTO) 2.9 X 10^3 (1.0-4.0); LYMPHOCYTES % (AUTO) 42 % (12-44); MEAN CORPUSCULAR HEMOGLOBIN 27 PG (25-34); MEAN CORPUSCULAR HGB CONC 34 G/DL (32-36); MEAN CORPUSCULAR VOLUME 80 FL (80-99); MEAN PLATELET VOLUME 10.5 FL (7.4-10.4); MONOCYTES # (AUTO) 0.5 X 10^3 (0.0-1.0); MONOCYTES % (AUTO) 7 % (0-12); NEUTROPHILS # (AUTO) 3.1 X 10^3 (1.8-7.8); NEUTROPHILS % (AUTO) 46 % (42-75); PLATELET COUNT 277 10^3/uL (130-400); RED CELL DISTRIBUTION WIDTH 15.2 % (10.0-14.5); WHITE BLOOD COUNT 6.8 10^3/uL (4.3-11.0)
[2019-10-23 15:32] LABS: INR 1.1 (0.8-1.4); PROTHROMBIN TIME PATIENT 14.5 SEC (12.2-14.7)
[2019-10-23 15:50] VITALS: BP 132/80
== END 2019-10-23 15:51 | disposition home or self-care (01) ==
LOC: EDUNIT# 14:19 → ER 14:22
DX: N93.9 Abnormal uterine and vaginal bleeding, unspecified (principal); F90.9 Attention-deficit hyperactivity disorder, unspecified type; F41.9 Anxiety disorder, unspecified; F43.10 Post-traumatic stress disorder, unspecified; F17.210 Nicotine dependence, cigarettes, uncomplicated
CPT/HCPCS: 36415; 84703; 85025; 85610; 85730

== ENCOUNTER 2019-11-19 20:51 | Emergency (ER) | payer SELFPAY ==
[~2019-11-19] VITALS: Ht 152.4 cm; Wt 99.0 kg
[~2019-11-19 20:51] MED LIST changes: +NORE1TAB4 PO
--- OUTSIDE RECORDS SUMMARY | 2019-11-19 20:58 | XMS REPORT | Continuity of Care Document ---
Author Organization Unknown Address Unknown Phone Unavailable Allergies Active Description Code Type Severity Reaction Onset Reported/Identified Relationship to Patient Clinical Status Yes No Allergy Information Available [id number] Drug Allergy Unknown N/A 018 Yes No Known Drug Allergies [id number] Drug Allergy Unknown N/A 03/29/2018 Yes amoxicillin [id number] Drug Aller gy Unknown N/A 03/03/2019 Medications [...] NICOTINE DEPENDENCE, CIGARETTES, UNCOMPL 12/30/2018 JEANIE CASTELLANO APRN Ot R11 .2 NAUSEA WITH VOMITING, UNSPECIFIED 12/30/2018 JEANIE CASTELLANO TRANSMITTER ENGINEER Ot Z90.49 ACQUIRED ABSENCE OF OTHER SPECIFIED PART 02/14/2019 JEANIE CASTELLANO APRN Ot B34 .9 VIRAL INFECTION, UNSPECIFIED 02/14/2019 JEANIE CASTELLANO TRANSMITTER ENGINEER Ot F17.210 NICOTINE DEPENDENCE, CIGARETTES, UNCOMPL 02/14/2019 JEANIE CASTELLANO APRN Ot R05 COUGH 02/14/2019 JEANIE CASTELLANO APRN Ot Z90.49 ACQUIRED ABSENCE OF OTHER SPECIFIED PART 09/09/2019 BRITTANY DO, DANIEL K Ot R05 COUGH 09/09/2019 BRITTANY DO, DANIEL K Ot R10.9 UNSPECIFIED ABDOMINAL PAIN 09/09/2019 BRITTANY DO, DANIEL K Ot R11.2 NAUSEA WITH VOMITING, UNSPECIFIED 09/09/2019 BRITTANY DO, DANIEL K Ot R50.9 FEVER, UNSPECIFIED 10/26/2019 BRITTANY DO, DANIEL K Ot F17.210 NICOTINE DEPENDENCE, CIGARETTES, UNCOMPL 10/26/2019 BRITTANY DO, DANIEL K Ot F41.9 ANXIETY DISORDER, UNSPECIFIED 10/26/2019 BRITTANY DO, DANIEL K Ot F43.10 POST-TRAUMATIC STRESS DISORDER, UNSPECIF 10/26/2019 BRITTANY DO, DANIEL K Ot F90.9 ATTENTION-DEFICIT HYPERACTIVITY DISORDER 10/26/2019 BRITTANY DO, DANIEL K Ot N93.9 ABNORMAL UTERINE AND VAGINAL BLEEDING, U Procedures There is no data. Results Test [...] culture SEE REPORT NRG COLONY COUNT . NRG Complete blood count (CBC) with automate [...] HPV mRNA E6/E7 - 00:00 CLINICAL INFORMATION: NRG LMP: 04/2019 NRG PREV. PAP: NONE NRG PREV. BX: NRG SOURCE: Cervix NRG STATEMENT OF ADEQUACY: NRG INTERPRETATION/RESULT: NRG TOE PULLER: NRG COMMENT NRG Urine beta human chorionic [...] 21:0 7 Bacterial throat culture NBS NRG Complete blood count (CBC) with automate d white blood cell (WBC) differential - 10/23/19 14:45 Blood leukocytes automated count (number/volume) 6.8 10*3/uL 4.3-11.0 Blood erythrocytes automated count (number/volume) 4.98 10*6/uL 4.35-5.85 Venous blood hemoglobin measurement (mass/volume) 13.4 g/dL 11.5-16.0 Blood hematocrit (volume fraction) 40 % 35-52 Automated erythrocyte mean corpuscular volume 80 [ foz_us] 80-99 Automated erythrocyte mean corpuscular h emoglobin (mass per erythrocyte) 27 pg 25-34 Automated erythrocyte mean corpuscular h emoglobin concentration measurement (mass/volume) 34 g/dL 32-36 Automated erythrocyte distribution width ratio 15. 2 % 10.0- 14.5 Automated blood platelet count (count/volume) 277 10*3/uL 130-400 Automated blood platelet mean volume measurement 10.5 [foz_us] 7.4-10.4 Automated blood neutrophils/100 leukocytes 46 % 42-75 Automated blood lymphocytes/100 leukocytes 42 % 12-44 Blood monocytes/100 leukocytes 7 % 0-12 Automated blood eosinophils/100 leukocytes 5 % 0-10 Automated blood basophils/100 leukocytes 0 % 0-10 Blood neutrophils automated count (number/volume) 3.1 10*3 1.8-7.8 Blood lymphocytes automated count (number/volume) 2.9 10*3 1.0-4.0 Blood monocytes automated count (number/volume) 0. 5 10*3 0.0-1.0 Automated eosinophil count 0.3 10*3/uL 0 .0-0.3 Automated blood basophil count (count/volume) 0.0 10*3/uL 0.0-0.1 PT panel in platelet poor plasma by coag ulation assay - 10/23/19 14:45 Prothrombin time (PT) in platelet poor plasma by coagu lation assay 14.5 s 12.2-14.7 INR in platelet poor plasma or blood by coagulation as say 1.1 0.8-1.4 Activated partial thromboplastin time (a PTT) in platelet poor plasma bycoagulation assay - 10/23/19 14:45 Activated partial thromboplastin time (a PTT) in platelet poor plasma bycoagulation assay 29 s 24-35 Encounters ACCT No. Visit Date/Time Discharge Status Pt. Type Provider Facility Loc./Unit Complaint [id number] 11/12/2019 13:00:00 11/12/2019 23:59: 59 CLS Outpatient TEJAL DASH [facility] [id number] 08/28/2019 15:20:00 Document Registration [id number] 10/23/2019 14:22:00 15:51:00 DIS Outpatient DANIEL SOTO DO, [facility] ER ABNORMAL PERIOD [id number] 09/06/2019 20:41:00 22:21:00 DIS Outpatient DANIEL SOTO DO, [facility] ER COUGH, N/V,HEADACHE,FEV ER [id number] 06/05/2019 19:01:00 21:25:00 DIS Emergency CAROLINA CEJA, SELAM Ding [facility] ER ABD PAIN [id number] 03/03/2019 14:16:00 019 16:00:00 DIS Emergency LAURA CURRY MD [facility] ER CHEST PAIN [id number] 02/08/2019 19:11:00 019 20:30:00 DIS Outpatient JEANIE CASTELLANO APRN [facility] ER COUGH,FEVER [id number] 12/25/2018 12:07:00 019 12:51:00 DIS Emergency JEANIE CASTELLANO APRN [facility] ER N/V [id number] 03/29/2018 11:21:00 018 14:34:00 DIS Emergency JODI LEMA MD [facility] ER THROWING UP
[2019-11-19] MEDS ORDERED: KETOROLAC 30 MG/ML VIAL IVP ONE (21:00)
--- NOTE | 2019-11-19 21:10 | ED Abdominal Pain ---
General Chief Complaint: Abdominal/GI Problems Stated Complaint: LOWER ABD PAIN Source of Information: Patient Exam Limitations: No Limitations History of Present Illness Date Seen by Provider: Nov 19, 2019 Time Seen by Provider: 21:07 Initial Comments To ER with midline suprapubic abdominal pain described as cramping. She states this feels like a menstrual period but very intense. She was seen in the emergency room about a month ago for heavy vaginal bleeding, given a month course of control pills, ran out of them 4 days ago, abdominal pain/pelvic cramping started 2 days ago. Minimal vaginal bleeding. Timing/Duration: 1-2 Days Severity/Quality: Cramping Location: Suprapubic Radiation: No Radiation Activities at Onset: None Associated Symptoms: Denies Symptoms Allergies and Home Medications Allergies Coded Allergies: amoxicillin (Verified Allergy, Unknown, 03/03/19) RASH Home Medications Cefdinir 300 Mg Capsule, 300 MG PO twice a day Prescribed by: JODI LEMA on 03/29/18 1410 D-Methorphan Hb/P-Epd HCl/Bpm 118 Ml Syrup, 5 ML PO Q6H PRN for CONGESTION Prescribed by: JEAINE CASTELLANO on 02/08/191955 Norethindrone-Ethinyl Estrad 1 Each Tablet, 4 TAB PO DAILY Prescribed by: DANIEL SOTO on 10/23/19 1509 Ondansetron 4 Mg Tab.rapdis, 4 MG PO Q4H PRN for NAUSEA/VOMITING Prescribed by: SELAM CORONADO on 06/05/192116 Ondansetron 4 Mg Tab.rapdis, 4 MG PO Q4H Prescribed by: DANIEL SOTO on 10/23/19 1509 Patient Home Medication List Home Medication List Reviewed: Yes Review of Systems Review of Systems Constitutional: see HPI EENTM: No Symptoms Reported Respiratory: No Symptoms Reported Cardiovascular: No Symptoms Reported Gastrointestinal: See HPI Genitourinary: No Symptoms Reported Musculoskeletal: no symptoms reported Skin: no symptoms reported Psychiatric/Neurological: No Symptoms Reported Endocrine: No Symptoms Reported Past Eyhvrwq-Avpzfq-Bcnaag Hx Patient Social History Drug of Choice: THC, METH--DENIES IV USE Type Used: Cigarettes 2nd Hand Smoke Exposure: Yes Recent Foreign Travel: No Contact w/Someone Who Travel: No Recent Hopitalizations: No Seasonal Allergies Seasonal Allergies: No Past Medical History Surgeries: Yes Appendectomy Respiratory: No Cardiac: No Neurological: No Reproductive Disorders: Yes Female Reproductive Disorders: Menstrual Problems Sexually Transmitted Disease: No Genitourinary: No Gastrointestinal: Yes Ulcer Musculoskeletal: No Endocrine: No HEENT: No Loss of Vision: Denies Hearing Impairment: Denies Cancer: No Psychosocial: Yes (SUBSTANCE ABUSE) ADD/ADHD, Anxiety, PTSD Integumentary: No Blood Disorders: No Physical Exam Vital Signs Capillary Refill : Height/Weight/BMI Height: 5'0" Weight: 180lbs. oz. 81.941691yv; 42.00 BMI Method:Stated General Appearance: WD/WN, no apparent distress Respiratory: no respiratory distress, no accessory muscle use Gastrointestinal: normal bowel sounds, non tender, soft Extremities: normal range of motion, non-tender Neurologic/Psychiatric: alert, normal mood/affect, oriented x 3 Skin: normal color, warm/dry Progress/Results/Core Measures Results/Orders My Orders Orders - JEANIE CASTELLANO APRN Cbc With Automated Diff (11/19/19 20:54) Comprehensive Metabolic Panel (11/19/19 20:54) Ed Iv/Invasive Line Start (11/19/19 20:54) Ct Abd/Pelvis Wo(Kidney Stone) (11/19/19 20:54) Ketorolac Injection (Toradol Injection) (11/19/19 21:00) Ua Culture If Indicated (11/19/19 20:54) Hydrocodone/Apap 5/325 Tablet (Lortab 5 (11/19/19 21:15) Departure Impression Primary Impression: Pelvic cramping Disposition: 01 HOME, SELF-CARE Departure-Patient Inst. Decision time for Depature: 21:10 Referrals: [facility] (PCP/Family) Primary Care Physician Patient Instructions: Menstrual Cramps Add. Discharge Instructions: 1. Take 4 ibuprofen tablets every 8 hours. You can add a Benadryl to them if need be All discharge instructions reviewed with patient and/or family. Voiced understanding. JEANIE CASTELLANO APRN Nov 19, 2019 21:10
[2019-11-19] MEDS ORDERED: HYDROcodone/APAP 5 MG/325 MG (LORTAB) TAB PO ONE (21:15)
[2019-11-19 21:22] LABS: BILIRUBIN,URINE NEGATIVE (NEGATIVE); CLARITY,URINE CLOUDY; COLOR,URINE YELLOW; GLUCOSE, URINE (UA) NEGATIVE (NEGATIVE); KETONES,URINE NEGATIVE (NEGATIVE); LEUKOCYTE ESTERASE ,URINE TRACE (NEGATIVE); NITRITE,URINE NEGATIVE (NEGATIVE); PH,URINE 5.5 (5-9); PROTEIN,URINE 1+ (NEGATIVE)
[2019-11-19 21:26] LABS: BASOPHILS % (AUTO) 0 % (0-10); EOSINOPHILS # (AUTO) 0.3 10^3/uL (0.0-0.3); EOSINOPHILS % (AUTO) 3 % (0-10); HEMATOCRIT 36 % (35-52); HEMOGLOBIN 11.9 G/DL (11.5-16.0); LYMPHOCYTES # (AUTO) 3.4 X 10^3 (1.0-4.0); LYMPHOCYTES % (AUTO) 28 % (12-44); MEAN CORPUSCULAR HEMOGLOBIN 27 PG (25-34); MEAN CORPUSCULAR HGB CONC 33 G/DL (32-36); MEAN CORPUSCULAR VOLUME 82 FL (80-99); MEAN PLATELET VOLUME 10.3 FL (7.4-10.4); MONOCYTES # (AUTO) 0.7 X 10^3 (0.0-1.0); MONOCYTES % (AUTO) 6 % (0-12); NEUTROPHILS # (AUTO) 7.6 X 10^3 (1.8-7.8); NEUTROPHILS % (AUTO) 63 % (42-75); PLATELET COUNT 367 10^3/uL (130-400); RED CELL DISTRIBUTION WIDTH 14.7 % (10.0-14.5)
[2019-11-19 21:42] LABS: CARBON DIOXIDE 14 MMOL/L (21-32); CHLORIDE 110 MMOL/L (98-107); SODIUM 141 MMOL/L (135-145)
[2019-11-19 21:43] LABS: ALANINE AMINOTRANSFERASE 13 U/L (0-55); ALKALINE PHOSPHATASE 113 U/L (40-136); BACTERIA,URINE TRACE /HPF; BILIRUBIN,TOTAL 0.2 MG/DL (0.1-1.0); BUN/CREATININE RATIO 13; CALCIUM 9.2 MG/DL (8.5-10.1); CREATININE SERUM 0.84 MG/DL (0.60-1.30); GFR ESTIMATED > 60; GLUCOSE 123 MG/DL (70-105); RBC,URINE TNTC /HPF; SQUAMOUS EPITHELIAL CELL,UR 0-2 /HPF; TOTAL PROTEIN 8.1 GM/DL (6.4-8.2); WBC,URINE RARE /HPF
[2019-11-19 22:21] VITALS: BP 132/98
== END 2019-11-19 22:21 | disposition home or self-care (01) ==
LOC: EDUNIT# 20:51 → ER 20:53
DX: R10.2 Pelvic and perineal pain (principal); F90.9 Attention-deficit hyperactivity disorder, unspecified type; F41.9 Anxiety disorder, unspecified; F43.10 Post-traumatic stress disorder, unspecified; Z87.19 Personal history of other diseases of the digestive system
CPT/HCPCS: 36415; 80053; 81000; 84703; 85025; 86141

== ENCOUNTER 2020-11-19 20:50 | Emergency (ER) | payer SELFPAY ==
[~2020-11-19] VITALS: Ht 152.4 cm; Wt 113.4 kg
--- NOTE | 2020-11-19 22:42 | ED General ---
General Chief Complaint: Dizziness/Syncope Stated Complaint: RIGHT SIDE PAIN Source of Information: Patient Exam Limitations: No Limitations History of Present Illness Date Seen by Provider: November 19, 2020 Time Seen by Provider: 22:30 Initial Comments Patient is a 20-year-old female who presents to the emergency department today with a chief complaint of "spasms" to her right side. Patient states that she feels like "bees are buzzing in her head". She states this has been going on for the last couple of days. She states occasionally she will have episodes where she just kind of convulses on her right side. She does not really remember these episodes. She is on no daily medications, she does not see a primary care provider. Patient and her girlfriend who is also at the bedside both just recovered from Covid. No shortness of breath no cough. No nausea, vomiting or diarrhea. All other review of systems reviewed and negative except as stated. Timing/Duration: 1-2 Days Severity: Mild Associated Systoms: Denies Symptoms Allergies and Home Medications Allergies Coded Allergies: amoxicillin (Verified Allergy, Unknown, 11/19/19) RASH Home Medications Cefdinir 300 Mg Capsule, 300 MG PO twice a day Prescribed by: JODI LEMA on 03/29/18 1410 D-Methorphan Hb/P-Epd HCl/Bpm 118 Ml Syrup, 5 ML PO Q6H PRN for CONGESTION Prescribed by: JEANIE CASTELLANO on 02/08/191955 Norethindrone-Ethinyl Estrad 1 Each Tablet, 4 TAB PO DAILY Prescribed by: DANIEL SOTO on 10/23/19 1509 Ondansetron 4 Mg Tab.rapdis, 4 MG PO Q4H PRN for NAUSEA/VOMITING Prescribed by: SELAM CORONADO on 06/05/192116 Ondansetron 4 Mg Tab.rapdis, 4 MG PO Q4H Prescribed by: DANIEL SOTO on 10/23/19 1509 Patient Home Medication List Home Medication List Reviewed: Yes Review of Systems Review of Systems Constitutional: see HPI EENTM: no symptoms reported Respiratory: no symptoms reported Cardiovascular: no symptoms reported Gastrointestinal: no symptoms reported Genitourinary: no symptoms reported Musculoskeletal: no symptoms reported Skin: no symptoms reported Psychiatric/Neurological: Tremors All Other Systems Reviewed Negative Unless Noted: Yes Past Nhmdxaa-Owvmwr-Iijghw Hx Patient Social History Drug of Choice: THC, METH--DENIES IV USE Type Used: Cigarettes 2nd Hand Smoke Exposure: Yes Recent Hopitalizations: No Seasonal Allergies Seasonal Allergies: No Past Medical History Surgeries: Yes Appendectomy Respiratory: No Cardiac: No Neurological: No Reproductive Disorders: Yes Female Reproductive Disorders: Menstrual Problems Sexually Transmitted Disease: No Genitourinary: No Gastrointestinal: Yes Ulcer Musculoskeletal: No Endocrine: No HEENT: No Loss of Vision: Denies Hearing Impairment: Denies Cancer: No Psychosocial: Yes (SUBSTANCE ABUSE) ADD/ADHD, Anxiety, PTSD Integumentary: No Blood Disorders: No Physical Exam Vital Signs Capillary Refill : Height, Weight, BMI Height: 5'0" Weight: 180lbs. oz. 81.146369mc; 42.00 BMI Method:Stated General Appearance: No Apparent Distress, WD/WN Eyes: Bilateral Eye Normal Inspection, Bilateral Eye PERRL, Bilateral Eye EOMI HEENT: PERRL/EOMI, Normal ENT Inspection Neck: Normal Inspection Respiratory: Lungs Clear, Normal Breath Sounds, No Accessory Muscle Use Cardiovascular: Regular Rate, Rhythm Gastrointestinal: Normal Bowel Sounds, Non Tender, Soft Extremity: Normal Inspection, Normal Range of Motion, No Calf Tenderness Neurologic/Psychiatric: Alert, Oriented x3, No Motor/Sensory Deficits, Normal Mood/Affect, insole doubler II-XII Norm as Tested Skin: Normal Color, Warm/Dry Progress/Results/Core Measures Suspected Sepsis SIRS Temperature: Pulse: Respiratory Rate: Blood Pressure / Mean: Results/Orders Vital Signs/I&O Capillary Refill : Progress Note : Time: 22:40 Progress Note Patient seen and examined, 20-year-old with a chief complaint of "spasms" to her right side. Patient declined any laboratory evaluation today. I have strongly encouraged her to follow-up with a primary care provider. She states that she is switching to [facility]. Patient states that she will follow-up with her provider on Saturday of next week. She has no clinical or objective findings to warrant further evaluation from the emergency department at this time. Vital signs are stable. Patient looks clinically well. All questions are sought and answered. Patient is stable for discharge. Departure Impression Primary Impression: Muscle spasm Disposition: 01 HOME, SELF-CARE Condition: Stable Departure-Patient Inst. Decision time for Depature: 22:41 Referrals: [facility] (PCP/Family) Primary Care Physician Patient Instructions: Muscle Spasm ED Add. Discharge Instructions: Please follow-up with your primary care provider next week. Drink plenty of fluids to stay well-hydrated. Come back to the emergency room for reevaluation if you have any persistent or worsening symptoms, new complaints. RITA EDMONDSON MD November 19, 2020 22:42
[2020-11-19 22:55] VITALS: BP 131/82
== END 2020-11-19 22:55 | disposition home or self-care (01) ==
LOC: EDUNIT# 20:50 → ER 20:53
DX: M62.838 Other muscle spasm (principal); Z77.22 Contact with and (suspected) exposure to environmental tobacco smoke (acute) (chronic); Z88.1 Allergy status to other antibiotic agents
CPT/HCPCS: 99283

== ENCOUNTER 2020-12-01 00:18 | Emergency (ER) | payer SELFPAY ==
[~2020-12-01] VITALS: Ht 152.4 cm; Wt 114.3 kg
--- NOTE | 2020-12-01 01:22 | ED Neurological Problem ---
General Chief Complaint: Neurological Problems Stated Complaint: SEIZURE LIKE ACTIVITY Source: patient Exam Limitations: no limitations (SELAM FIGUEROA MD) Source: patient, other (girlfriend) Exam Limitations: no limitations (HERBIE HOPE MED STUDENT) History of Present Illness Date Seen by Provider: December 01, 2020 (SELAM FIGUEROA MD) Time Seen by Provider: 00:48 Initial Comments 20 y/o female presents with girlfriend for episodic "seizure like activity" onset 2 weeks ago. Patient states she has been experiencing multiple episodes a day of R sided muscle tension, spasms, R sided vision changes and SOB lasting around 20-30 mins each. She notes prior to these episodes she feels "buzzing in [her] brain", girlfriend states she has lost control of her bladder in the past and had hit her head during an episode today as well as falling during an episode yesterday. Patient denies any LOC or pain during her episodes. She reports episodes in the past of similar symptoms during times of stress when she was in grade school, though she never reported them. She denies any workup of these symptoms or any previous brain imaging. She recently entered Dr. Mosquera's service at [facility], has an MRI scheduled for this coming Saturday (5 days form now). Denies any neck injury, CP, palpitations, vomiting, diarrhea, hx of medical problems or being on any current medication. Patient states she came in today at the behest of her mother. (HERBIE HOPE MED STUDENT) Allergies and Home Medications Allergies Coded Allergies: amoxicillin (Verified Allergy, Unknown, 11/19/19) RASH Home Medications Cefdinir 300 Mg Capsule, 300 MG PO twice a day Prescribed by: JODI LEMA on 03/29/18 1410 D-Methorphan Hb/P-Epd HCl/Bpm 118 Ml Syrup, 5 ML PO Q6H PRN for CONGESTION Prescribed by: JEANIE CASTELLANO on 02/08/191955 Norethindrone-Ethinyl Estrad 1 Each Tablet, 4 TAB PO DAILY Prescribed by: DANIEL SOTO on 10/23/19 1509 Ondansetron 4 Mg Tab.rapdis, 4 MG PO Q4H PRN for NAUSEA/VOMITING Prescribed by: SELAM CORONADO on 06/05/192116 Ondansetron 4 Mg Tab.rapdis, 4 MG PO Q4H Prescribed by: DANIEL SOTO on 10/23/19 1509 Patient Home Medication List Home Medication List Reviewed: Yes (SELAM FIGUEROA MD) Review of Systems Review of Systems Constitutional: dizziness; No weakness Eyes: Blurred Vision (R sided); Denies Pain Ears, Nose, Mouth, Throat: denies ear pain, denies epistaxis Respiratory: No hemoptysis; short of breath (during episode, none currently) Gastrointestinal: No abdominal pain, No constipation, No diarrhea, No vomiting Genitourinary: No dysuria, No frequency, No hematuria : No Musculoskeletal: No back pain; muscle twitching; No neck pain Skin: No change in color, No rash Psychiatric/Neurological: Anxiety; Denies Unable to Move Lower Ext, Denies Unable to Move Upper Ext Endocrine: Denies Excessive Sweating, Denies Flushing Hematologic/Lymphatic: Denies Easy Bleeding, Denies Easy Bruising (HERBIE HOPE MED STUDENT) Past Pnicjve-Qtijjc-Embnmg Hx Patient Social History Alcohol Use: Rarely Uses Drug of Choice: THC, METH--DENIES IV USE Type Used: Cigarettes 2nd Hand Smoke Exposure: Yes Recent Hopitalizations: No (SELAM FIGUEROA MD) Seasonal Allergies Seasonal Allergies: No (SELAM FIGUEROA MD) Past Medical History Surgeries: Yes Appendectomy Respiratory: No Cardiac: No Neurological: No Reproductive Disorders: Yes Female Reproductive Disorders: Menstrual Problems Sexually Transmitted Disease: No Genitourinary: No Gastrointestinal: Yes Ulcer Musculoskeletal: No Endocrine: No HEENT: No Loss of Vision: Denies Hearing Impairment: Denies Cancer: No Psychosocial: Yes (SUBSTANCE ABUSE) ADD/ADHD, Anxiety, PTSD Integumentary: No Blood Disorders: No (SELAM FIGUEROA MD) Physical Exam Vital Signs Vital Signs - First Documented 12/01/20 00:30 Temp 36.8 Pulse 91 Resp 18 B/P (MAP) 123/76 (92) Pulse Ox 100 (HERBIE HOPE MED STUDENT) Vital Signs Capillary Refill : (SELAM FIGUEROA MD) Height, Weight, BMI Height: 5'0" Weight: 180lbs. oz. 81.060561ww; 48.00 BMI Method:Stated (SELAM FIGUEROA MD) General Appearance: no apparent distress, obese, other (laying comfortably in room) HEENT: PERRL/EOMI; No pale conjunctivae (R), No pale conjunctivae (L) Neck: non-tender, full range of motion, normal inspection Respiratory: chest non-tender, lungs clear, normal breath sounds, no respiratory distress, no accessory muscle use Cardiovascular: normal peripheral pulses, regular rate, rhythm Peripheral Pulses: 2+ Carotid (R), 2+ Carotid (L), 2+ Radial Pulses (R), 2+ Radial Pulses (L) Gastrointestinal: normal bowel sounds, non tender Back: no CVA tenderness, no vertebral tenderness Extremities: normal range of motion, non-tender Neurologic/Psychiatric: no motor/sensory deficits, alert Crainal Nerves: normal hearing, normal speech; No abnormal eye position, No abnormal pupil position, No abnormal speech, No facial asymmetry, No facial droop, No facial weakness, No gaze palsy Coordination/Gait: normal finger to nose Motor/Sensory: no motor deficit; No weak motor strength RUE, No weak motor strength LUE, No weak motor strength RLE, No weak motor strength LLE Skin: normal color; No diaphoresis, No damp Lymphatic: no adenopathy (HERBIE HOPE MED STUDENT) Progress/Results/Core Measures Results/Orders Lab Results Laboratory Tests Test 12/01/20 01:13 12/01/20 01:39 Range/Units White Blood Count 8.6 4.3-11.0 10^3/uL Red Blood Count 5.47 H 3.80-5.11 10^6/uL Hemoglobin 13.5 11.5-16.0 g/dL Hematocrit 43 35-52 % Mean Corpuscular Volume 78 L 80-99 fL Mean Corpuscular Hemoglobin 25 25-34 pg Mean Corpuscular Hemoglobin Concent 32 32-36 g/dL Red Cell Distribution Width 15.6 H 10.0-14.5 % Platelet Count 256 130-400 10^3/uL Mean Platelet Volume 10.5 9.0-12.2 fL Immature Granulocyte % (Auto) 0 % Neutrophils (%) (Auto) 55 42-75 % Lymphocytes (%) (Auto) 35 12-44 % Monocytes (%) (Auto) 6 0-12 % Eosinophils (%) (Auto) 4 0-10 % Basophils (%) (Auto) 0 0-10 % Neutrophils # (Auto) 4.7 1.8-7.8 10^3/uL Lymphocytes # (Auto) 3.1 1.0-4.0 10^3/uL Monocytes # (Auto) 0.5 0.0-1.0 10^3/uL Eosinophils # (Auto) 0.3 0.0-0.3 10^3/uL Basophils # (Auto) 0.0 0.0-0.1 10^3/uL Immature Granulocyte # (Auto) 0.0 0.0-0.1 10^3/uL Sodium Level 141 135-145 MMOL/L Potassium Level 4.0 3.6-5.0 MMOL/L Chloride Level 106 98-107 MMOL/L Carbon Dioxide Level 21 21-32 MMOL/L Anion Gap 14 5-14 MMOL/L Blood Urea Nitrogen 17 7-18 MG/DL Creatinine 0.91 0.60-1.30 MG/DL Estimat Glomerular Filtration Rate > 60 BUN/Creatinine Ratio 19 Glucose Level 103 70-105 MG/DL Calcium Level 9.8 8.5-10.1 MG/DL Corrected Calcium 9.5 8.5-10.1 MG/DL Magnesium Level 2.0 1.6-2.4 MG/DL Total Bilirubin 0.3 0.1-1.0 MG/DL Aspartate Amino Transf (AST/SGOT) 25 5-34 U/L Alanine Aminotransferase (ALT/SGPT) 30 0-55 U/L Alkaline Phosphatase 121 40-136 U/L Total Protein 8.3 H 6.4-8.2 GM/DL Albumin 4.4 3.2-4.5 GM/DL Free Thyroxine 0.95 0.70-1.48 NG/DL TSH Glascock Testing 5.08 H 0.35-4.94 UIU/ML Serum Test, Qualitative NEGATIVE NEGATIVE Urine Color YELLOW Urine Clarity CLEAR Urine pH 5.0 5-9 Urine Specific [place] >=1.030 1.016-1.022 Urine Protein NEGATIVE NEGATIVE Urine Glucose (UA) NEGATIVE NEGATIVE Urine Ketones NEGATIVE NEGATIVE Urine Nitrite NEGATIVE NEGATIVE Urine Bilirubin NEGATIVE NEGATIVE Urine Urobilinogen 0.2 < = 1.0 MG/DL Urine Leukocyte Esterase NEGATIVE NEGATIVE Urine RBC (Auto) NEGATIVE NEGATIVE Urine RBC NONE /HPF Urine WBC NONE /HPF Urine Squamous Epithelial Cells 5-10 /HPF Urine Crystals NONE /LPF Urine Bacteria NEGATIVE /HPF Urine Casts NONE /LPF Urine Mucus SMALL H /LPF Urine Culture Indicated NO (HERBIE HOPE MED STUDENT) Vital Signs/I&O 12/01/20 00:30 Temp 36.8 Pulse 91 Resp 18 B/P (MAP) 123/76 (92) Pulse Ox 100 (HERBIE HOPE MED STUDENT) Progress Progress Note : Time: 03:05 Progress Note Labs, UA and CT all returned normal. Discussed results with patient and recommended continuing with plan for upcoming MRI. Advised avoidance of any activity that would compromise safety should seizure activity occur again. Patient verbalizes understanding and has no questions at this time, feels ready for discharge. (HERBIE HOPE MED STUDENT) Diagnostic Imaging Diagonstic Imaging: CT Plain Films/CT/US/NM/MRI: head Comments CT head viewed by me and report reviewed. See report below: NAME: CHRIS CAMARGO [facility] REC#: [id number] PT STATUS: DEP ER : 2000 PHYSICIAN: SELAM FIGUEROA MD ADMIT DATE: 12/01/20/ER Signed Date of Exam:12/01/20 CT HEAD WO PROCEDURE: CT head without contrast. TECHNIQUE: Multiple contiguous axial images were obtained through the brain without the use of intravenous contrast. Auto Exposure Controls were utilized during the CT exam to meet ALARA standards for radiation dose reduction. INDICATION: Fall, seizure-like activity. No relevant comparison. FINDINGS: No intracranial hemorrhage, hydrocephalus, edema, mass, mass effect nor evidence for elevated intracerebral pressures. The basilar cisterns are patent. There is no sulcal effacement. IMPRESSION: Unremarkable CT head Dictated by: Dictated on workstation # [id number] Dict: 12/01/20 0650 Trans: 12/01/20 1040 RANDOLPH [id number] Interpreted by: TSERING MCCAULEY Electronically signed by: TSERING MCCAULEY 12/01/20 1040 (SELAM FIGUEROA MD) Departure Impression Primary Impression: Seizure-like activity Disposition: 01 HOME, SELF-CARE Condition: Improved Departure-Patient Inst. Referrals: [facility] [place] ([place]/Family) Primary Care Physician Patient Instructions: Seizures Add. Discharge Instructions: Proceed with further work-up by obtaining MRI as recommended by your primary care provider. Follow-up with your primary care provider soon as possible. Return to care if you have worsening symptoms. Call with questions or concerns. Avoid any activity that could potentially cause you or others harm if you should have more episodes. Such activities would include driving, operating machinery, swimming, use of ladders, etc. All discharge instructions reviewed with patient and/or family. Voiced understanding. Medical Student Attestation and Attending Note: I have personally interviewed and examined this patient along with Herbie Hope, MS3. I have reviewed student documentation including history, physical, and assessments. I agree with the documentation except where otherwise noted. Exam: General: Alert, oriented, no acute distress, well developed HEENT: Normocephalic and atraumatic Heart: Regular rate and rhythm without murmur Lungs: Clear to auscultation bilaterally with normal effort Abdomen: Soft, nontender, nondistended, normal bowel sounds Neuropsych: Alert, oriented, no focal deficits, no motor deficits. No facial droop or asymmetry. Cranial nerves intact. Skin: Warm and dry without rashes Patient denied any injury with her fall earlier today. She denied head or neck pain. I discussed risks and benefits of obtaining CT scan to promptly evaluate her neurologic symptoms. Risks included radiation exposure. Patient would like to proceed with CT scan tonight. CT was unremarkable. Labs were also unremarkable. No focal deficits were found on exam. Patient was encouraged to keep her appointment for MRI for further evaluation and seek referral to a neurologist. Patient indicates referral is in process through her primary care office. (SELAM FIGUEROA MD) Copy Copies To 1: SHANNAN STEWART JOSHUA T MD December 01, 2020 01:21 HERBIE HOPE MED STUDENT December 01, 2020 01:53
[2020-12-01 01:38] LABS: BASOPHILS % (AUTO) 0 % (0-10); EOSINOPHILS # (AUTO) 0.3 10^3/uL (0.0-0.3); EOSINOPHILS % (AUTO) 4 % (0-10); HEMATOCRIT 43 % (35-52); HEMOGLOBIN 13.5 g/dL (11.5-16.0); LYMPHOCYTES # (AUTO) 3.1 10^3/uL (1.0-4.0); LYMPHOCYTES % (AUTO) 35 % (12-44); MEAN CORPUSCULAR HEMOGLOBIN 25 pg (25-34); MEAN CORPUSCULAR HGB CONC 32 g/dL (32-36); MEAN CORPUSCULAR VOLUME 78 fL (80-99); MEAN PLATELET VOLUME 10.5 fL (9.0-12.2); MONOCYTES # (AUTO) 0.5 10^3/uL (0.0-1.0); MONOCYTES % (AUTO) 6 % (0-12); NEUTROPHILS # (AUTO) 4.7 10^3/uL (1.8-7.8); NEUTROPHILS % (AUTO) 55 % (42-75); PLATELET COUNT 256 10^3/uL (130-400); WHITE BLOOD COUNT 8.6 10^3/uL (4.3-11.0)
[2020-12-01 01:40] LABS: ALBUMIN 4.4 GM/DL (3.2-4.5); CHLORIDE 106 MMOL/L (98-107); SODIUM 141 MMOL/L (135-145)
[2020-12-01 01:41] LABS: CALCIUM 9.8 MG/DL (8.5-10.1)
[2020-12-01 01:42] LABS: GLUCOSE 103 MG/DL (70-105)
[2020-12-01 01:43] LABS: CARBON DIOXIDE 21 MMOL/L (21-32); TOTAL PROTEIN 8.3 GM/DL (6.4-8.2)
[2020-12-01 01:44] LABS: BILIRUBIN,TOTAL 0.3 MG/DL (0.1-1.0)
[2020-12-01 01:46] LABS: BILIRUBIN,URINE NEGATIVE (NEGATIVE); CLARITY,URINE CLEAR; COLOR,URINE YELLOW; GLUCOSE, URINE (UA) NEGATIVE (NEGATIVE); KETONES,URINE NEGATIVE (NEGATIVE); LEUKOCYTE ESTERASE ,URINE NEGATIVE (NEGATIVE); NITRITE,URINE NEGATIVE (NEGATIVE); PROTEIN,URINE NEGATIVE (NEGATIVE)
[2020-12-01 01:46] LABS: ALKALINE PHOSPHATASE 121 U/L (40-136); CREATININE SERUM 0.91 MG/DL (0.60-1.30); GFR ESTIMATED > 60
[2020-12-01 01:47] LABS: BUN/CREATININE RATIO 19
[2020-12-01 01:49] LABS: ALANINE AMINOTRANSFERASE 30 U/L (0-55)
[2020-12-01 01:54] LABS: BACTERIA,URINE NEGATIVE /HPF
[2020-12-01 02:11] LABS: TSH (THYROID ANALYZER) 5.08 UIU/ML (0.35-4.94)
[2020-12-01 02:44] LABS: FREE T4 (FREE THYROXINE) 0.95 NG/DL (0.70-1.48)
[2020-12-01 03:20] VITALS: BP 97/57
--- NOTE | 2020-12-01 06:55 | Diagnostic Imaging Report ---
PROCEDURE: CT head without contrast. TECHNIQUE: Multiple contiguous axial images were obtained through the brain without the use of intravenous contrast. Auto Exposure Controls were utilized during the CT exam to meet ALARA standards for radiation dose reduction. INDICATION: Fall, seizure-like activity. No relevant comparison. FINDINGS: No intracranial hemorrhage, hydrocephalus, edema, mass, mass effect nor evidence for elevated intracerebral pressures. The basilar cisterns are patent. There is no sulcal effacement. IMPRESSION: Unremarkable CT head Dictated by: Dictated on workstation # [id number]
== END 2020-12-01 03:25 | disposition home or self-care (01) ==
LOC: EDUNIT# 00:18 → ER 00:23
DX: R29.818 Other symptoms and signs involving the nervous system (principal); E66.9 Obesity, unspecified; Z88.1 Allergy status to other antibiotic agents; Z77.22 Contact with and (suspected) exposure to environmental tobacco smoke (acute) (chronic); Z68.42 Body mass index [BMI] 45.0-49.9, adult
CPT/HCPCS: 36415; 70450; 80053; 81000; 83735; 84439; 84443; 84703; 85025

== ENCOUNTER 2021-12-20 16:20 | Outpatient (CLI) | payer OTHER ==
[2021-12-20] VITALS (9 sets, daily range): BP systolic 113–130; BP diastolic 60–88
[~2021-12-20] VITALS: Ht 152.4 cm; Wt 121.4 kg
[2021-12-20] MEDS ORDERED: NS IV 500 ML 500 ML IV SCH (17:00)
[2021-12-20 17:08] LABS: BASOPHILS % (AUTO) 0 % (0-10); EOSINOPHILS # (AUTO) 0.3 10^3/uL (0.0-0.3); EOSINOPHILS % (AUTO) 4 % (0-10); LYMPHOCYTES # (AUTO) 2.6 10^3/uL (1.0-4.0); LYMPHOCYTES % (AUTO) 30 % (12-44); MEAN CORPUSCULAR HEMOGLOBIN 17 pg (25-34); MEAN CORPUSCULAR HGB CONC 26 g/dL (32-36); MEAN CORPUSCULAR VOLUME 66 fL (80-99); MONOCYTES # (AUTO) 0.4 10^3/uL (0.0-1.0); MONOCYTES % (AUTO) 5 % (0-12); NEUTROPHILS # (AUTO) 5.3 10^3/uL (1.8-7.8); NEUTROPHILS % (AUTO) 61 % (42-75); PLATELET COUNT 386 10^3/uL (130-400); WHITE BLOOD COUNT 8.8 10^3/uL (4.3-11.0)
[2021-12-20 17:10] LABS: HEMATOCRIT 19 % (35-52); HEMOGLOBIN 4.9 g/dL (11.5-16.0)
[2021-12-20] MEDS ORDERED: NS (IVPB) 0 ML ONE (18:00)
[2021-12-20] MEDS ORDERED: NS IV 500 ML 500 ML ONE (18:01)
== END 2021-12-20 23:15 ==
LOC: SDC 16:20 → 4TH 16:55 → SDC 23:15
PROVIDERS: ATTEND Pediatrics
DX: D50.0 Iron deficiency anemia secondary to blood loss (chronic) (principal)
CPT/HCPCS: 36430; 85025; 86850; 86900; 86901; 86920; P9016; 36415

== ENCOUNTER 2022-01-17 11:31 | Outpatient (RCR) | payer OTHER ==
[~2022-01-17] VITALS: Ht 152.4 cm; Wt 121.4 kg
[2022-01-17] MEDS ORDERED: IRON SUCROSE 200 MG/10 ML (VENOFER) VIAL IV SCH (12:00)
[2022-01-17 13:15] VITALS: BP 149/80
== END 2022-01-18 ==
LOC: SDC 11:31
PROVIDERS: ATTEND Pediatrics
DX: R79.0 Abnormal level of blood mineral (principal)
CPT/HCPCS: 96365

== ENCOUNTER 2022-01-19 11:27 | Outpatient (RCR) | payer OTHER ==
[2022-01-19] MEDS ORDERED: IRON SUCROSE 200 MG/10 ML (VENOFER) VIAL IV SCH (11:30)
== END 2022-02-18 | disposition home or self-care (01) ==
LOC: SDC 11:27
PROVIDERS: ATTEND Pediatrics
DX: R79.0 Abnormal level of blood mineral (principal)
CPT/HCPCS: 96365